=== PATIENT | male | born 1960 | race Caucasian/White ===

== ENCOUNTER 2016-07-21 10:18 | Emergency (ER) | payer MEDICARE, MEDICAID ==
--- NOTE | 2016-07-21 11:05 | EDDOCDS ---
Physician Documentation [facility] Name: Angel Suazo Age: 56 yrs Sex: Male : 1960 Arrival Date: 07/21/2016 Time: 10:18 Bed Triage 1 Private MD: Deng Lentz Disposition: 07/21/16 10:48 Discharged to Home/Self Care. Impression: Fall on same level due to ice and snow, Strain of muscle, fascia and tendon of lower back. - Condition is Stable. - Discharge Instructions: Back Pain, Adult, Muscle Strain. - Prescriptions for Naprosyn 500 mg Oral Tablet - take 1 tablet by ORAL route 2 times per day take with food; 30 tablet. Cyclobenzaprine 10 mg Oral Tablet - take 1 tablet by ORAL route 3 times per day As needed; 15 tablet. - Medication Reconciliation, Local Pharmacy Hours form. - Follow up: Deng Lentz; When: Call to arrange an appointment; Reason: Recheck today's complaints, Continuance of care. Follow up: Emergency Department; When: As needed; Reason: Worsening of conditions, severe pain, numbness/weakness of legs, bowel/bladder dysfunction. - Problem is new. - Symptoms are unchanged. Historical: - Allergies: [place] Soap; - Home Meds: 1. metformin 1,000 mg oral tab daily - PMHx: Anxiety; Depression; Left knee pain - no ACL; - PSHx: Calcium Deposit removed from Scrotum; Bone Grafting; - Social history: Smoking status: Patient uses tobacco products, heavy tobacco smoker. No barriers to communication noted, The patient speaks fluent Faroese, Speaks appropriately for age. - Family history: Not pertinent. - : The pt / caregiver states he / she is not on anticoagulants. Home medication list is obtained from the patient. - Exposure Risk Screening:: None identified. Vital Signs: 07/21 10:23 BP 147 / 95; Pulse 81; Resp 18; Temp 97.0; Pulse Ox 97% ; Weight 112.94 kg / 248.99 elp lbs; Height 5 ft. 9 in. (175.26 cm); Pain 8/10; 10:23 Body Mass Index 36.77 (112.94 kg, 175.26 cm) elp MDM: 11:01 Financial registration complete. lg Signatures: Mendez Shaikh RN RN dwg Johnson, Bruce, RN RN bcj Ganter, LoriLee, Masoud Reg lg Pierce Vigil, BISHNU GOETZ ar2 MTDD
--- NOTE | 2016-07-21 11:05 | EDDOCDS ---
Nurse's Notes [facility] Name: Angel Suazo Age: 56 yrs Sex: Male : 1960 Arrival Date: 07/21/2016 Time: 10:18 Bed Triage 1 Private MD: Deng Lentz Diagnosis: Fall on same level due to ice and snow;Strain of muscle, fascia and tendon of lower back Presentation: 07/21 10:28 Presenting complaint: Patient states: fell a few days ago and landed on stomach. has bcj had back pain since fall. has hx of low back problems. c/o low back pain and pain in hips today. pain increased with sitting / walking. denies diff voiding. Acute neurological deficits are not present. Mechanism of Injury: Fall. Adult Sepsis Screening: The patient does not have new or worsening altered mentation. Patient's respiratory rate is less than 22. Systolic blood pressure is greater than 100. Patient has a qSOFA score of 0- Negative Sepsis Screen. 10:28 Acuity: PREM Level 4 bcj 11:04 Suicide/Homicide risk assessment- the patient denies having any suicidal and/or dwg homicidal ideations and does not present with any other emotional, behavioral or mental health complaints. Status: Patient is not a patient services representative or dependent. Transition of care: patient was not received from another setting of care. 11:04 Method Of Arrival: Walkin/Carried/Asstd dwg Triage Assessment: 10:31 General: Appears in no apparent distress, comfortable, Behavior is cooperative. Pain: bcj Location: back Pain currently is 8 out of 10 on a pain scale. HIV screening NA for this visit Offered previously. Musculoskeletal: No deficits noted. Historical: - Allergies: [place] Soap; - Home Meds: 1. metformin 1,000 mg oral tab daily - PMHx: Anxiety; Depression; Left knee pain - no ACL; - PSHx: Calcium Deposit removed from Scrotum; Bone Grafting; - Social history: Smoking status: Patient uses tobacco products, heavy tobacco smoker. No barriers to communication noted, The patient speaks fluent Amharic, Speaks appropriately for age. - Family history: Not pertinent. - : The pt / caregiver states he / she is not on anticoagulants. Home medication list is obtained from the patient. - Exposure Risk Screening:: None identified. Screenin:03 Screening information is obtained from the patient. Fall risk: No risks identified. dwg Assistance ADL's: requires no assistance with activities of daily living. Abuse/DV Screen: The patient / caregiver reports he/she is: not in a situation that causes fear, pain or injury. Nutritional screening: No deficits noted. Advance Directives: Currently, there is no health care proxy. There is no active DNR order. There is no living will. There is no Power of Healthcare Analyst. Advance directive information has not previously been placed in an [facility] medical record. Further advance directive information is declined. home support is adequate. Assessment: 11:02 General: Appears in no apparent distress, Behavior is cooperative. Pain: Location: left dwg low back and right low back Pain currently is 8 out of 10 on a pain scale. Neurological: Level of Consciousness is awake, alert, Oriented to person, place, time. Respiratory: Airway is patent Respiratory effort is even, unlabored, Respiratory pattern is regular, symmetrical. Musculoskeletal: Low back pain since falling. Vital Signs: 10:23 BP 147 / 95; Pulse 81; Resp 18; Temp 97.0; Pulse Ox 97% ; Weight 112.94 kg; Height 5 elp ft. 9 in. (175.26 cm); Pain 8/10; 10:23 Body Mass Index 36.77 (112.94 kg, 175.26 cm) [facility] Vitals: 10:23 Log In Time: July 21, 2016 at 10:20. [facility] ED Course: 10:23 Patient visited by Nabila Berrios PCA. elp 10:23 Dneg Lentz is Private Physician. elp 10:23 Patient moved to Waiting elp 10:23 Patient moved to Pre RCE elp 10:24 Patient visited by Nabila Berrios PCA. elp 10:30 Triage Initiated bcj 10:31 Patient visited by Sandor Vallejo RN. bcj 10:38 Pierce Vigil [facility]C [facility]. ar2 10:38 Erich Powell MD is Attending Physician. ar2 10:38 Patient moved to Triage 1 ct3 10:39 Patient visited by Pierce Vigil PA-C. ar2 10:47 Deng Lentz is Referral Physician. ar2 11:04 The patient / caregiver is instructed regarding the plan of care and ED course. dwg 11:04 No IV's were initiated during this patient's visit. No procedures done that require dwg assistance. Order Results: There are currently no results for this order. Outcome: 10:48 Discharge ordered by Provider. ar2 11:03 Discharge Assessment: Patient awake, alert and oriented x 3. No cognitive and/or dwg functional deficits noted. Patient verbalized understanding of disposition instructions. patient administered narcotics - no. The following High Risk Discharge criteria are identified: None. Discharged to home ambulatory. Condition: good Condition: stable. No special radiology studies were completed. Property sent home with patient. 11:04 Patient left the ED. dwg Signatures: Mendez Shaikh, RN RN Sandor Canales RN RN Pierce Spicer, BISHNU PA-Adonis ar2 Monserrat Garrett, INSTRUMENTATION SPECIALIST INSTRUMENTATION SPECIALIST ct3 Nabila Berrios, INSTRUMENTATION SPECIALIST INSTRUMENTATION SPECIALIST elp MTDD
--- NOTE | 2016-07-23 12:05 | EDDOCDS ---
Physician Documentation [facility] Name: Angel Suazo Age: 56 yrs Sex: Male : 1960 Arrival Date: 07/21/2016 Time: 10:18 Bed Triage 1 Private MD: Deng Lentz Disposition: 07/21/16 10:48 Discharged to Home/Self Care. Impression: Fall on same level due to ice and snow, Strain of muscle, fascia and tendon of lower back. - Condition is Stable. - Discharge Instructions: Back Pain, Adult, Muscle Strain. - Prescriptions for Naprosyn 500 mg Oral Tablet - take 1 tablet by ORAL route 2 times per day take with food; 30 tablet. Cyclobenzaprine 10 mg Oral Tablet - take 1 tablet by ORAL route 3 times per day As needed; 15 tablet. - Medication Reconciliation, Local Pharmacy Hours form. - Follow up: Deng Lentz; When: Call to arrange an appointment; Reason: Recheck today's complaints, Continuance of care. Follow up: Emergency Department; When: As needed; Reason: Worsening of conditions, severe pain, numbness/weakness of legs, bowel/bladder dysfunction. - Problem is new. - Symptoms are unchanged. Historical: - Allergies: [place] Soap; - Home Meds: 1. metformin 1,000 mg oral tab daily - PMHx: Anxiety; Depression; Left knee pain - no ACL; - PSHx: Calcium Deposit removed from Scrotum; Bone Grafting; - Social history: Smoking status: Patient uses tobacco products, heavy tobacco smoker. No barriers to communication noted, The patient speaks fluent Setswana, Speaks appropriately for age. - Family history: Not pertinent. - : The pt / caregiver states he / she is not on anticoagulants. Home medication list is obtained from the patient. - Exposure Risk Screening:: None identified. Vital Signs: 07/21 10:23 BP 147 / 95; Pulse 81; Resp 18; Temp 97.0; Pulse Ox 97% ; Weight 112.94 kg / 248.99 elp lbs; Height 5 ft. 9 in. (175.26 cm); Pain 8/10; 10:23 Body Mass Index 36.77 (112.94 kg, 175.26 cm) elp MDM: 11:01 Financial registration complete. lg 11:46 [facility] Payment Agreement was scanned into [employer] and attached to record. lg 14:17 T-Sheet-- Draft Copy was scanned into [employer] and attached to record. gb Signatures: Mendez Shaikh RN RN dwg Johnson, Bruce, RN RN Yoselin Mckeon, Reg Reg gb Alen Wilson, Reg Reg lg Pierce Vigil, BISHNU [email or web address] The chart was reviewed and I authenticate all verbal orders and agree with the evaluation and treatment provided.Attachments: 11:46 [facility] Payment Agreement lg 14:17 T-Sheet-- Draft Copy gb Chart Complete MTDD
--- NOTE | 2016-07-23 12:05 | EDDOCDS ---
Nurse's Notes [facility] Name: Angel Suazo Age: 56 yrs Sex: Male : 1960 Arrival Date: 07/21/2016 Time: 10:18 Bed Triage 1 Private MD: Deng Lentz Diagnosis: Fall on same level due to ice and snow;Strain of muscle, fascia and tendon of lower back Presentation: 07/21 10:28 Presenting complaint: Patient states: fell a few days ago and landed on stomach. has bcj had back pain since fall. has hx of low back problems. c/o low back pain and pain in hips today. pain increased with sitting / walking. denies diff voiding. Acute neurological deficits are not present. Mechanism of Injury: Fall. Adult Sepsis Screening: The patient does not have new or worsening altered mentation. Patient's respiratory rate is less than 22. Systolic blood pressure is greater than 100. Patient has a qSOFA score of 0- Negative Sepsis Screen. 10:28 Acuity: PREM Level 4 bcj 11:04 Suicide/Homicide risk assessment- the patient denies having any suicidal and/or dwg homicidal ideations and does not present with any other emotional, behavioral or mental health complaints. Status: Patient is not a resident service coordinator or dependent. Transition of care: patient was not received from another setting of care. 11:04 Method Of Arrival: Walkin/Carried/Asstd dwg Triage Assessment: 10:31 General: Appears in no apparent distress, comfortable, Behavior is cooperative. Pain: bcj Location: back Pain currently is 8 out of 10 on a pain scale. HIV screening NA for this visit Offered previously. Musculoskeletal: No deficits noted. Historical: - Allergies: [place] Spring Soap; - Home Meds: 1. metformin 1,000 mg oral tab daily - PMHx: Anxiety; Depression; Left knee pain - no ACL; - PSHx: Calcium Deposit removed from Scrotum; Bone Grafting; - Social history: Smoking status: Patient uses tobacco products, heavy tobacco smoker. No barriers to communication noted, The patient speaks fluent Latvian, Speaks appropriately for age. - Family history: Not pertinent. - : The pt / caregiver states he / she is not on anticoagulants. Home medication list is obtained from the patient. - Exposure Risk Screening:: None identified. Screenin:03 Screening information is obtained from the patient. Fall risk: No risks identified. dwg Assistance ADL's: requires no assistance with activities of daily living. Abuse/DV Screen: The patient / caregiver reports he/she is: not in a situation that causes fear, pain or injury. Nutritional screening: No deficits noted. Advance Directives: Currently, there is no health care proxy. There is no active DNR order. There is no living will. There is no Power of Imaging Analyst. Advance directive information has not previously been placed in an [facility] medical record. Further advance directive information is declined. home support is adequate. Assessment: 11:02 General: Appears in no apparent distress, Behavior is cooperative. Pain: Location: left dwg low back and right low back Pain currently is 8 out of 10 on a pain scale. Neurological: Level of Consciousness is awake, alert, Oriented to person, place, time. Respiratory: Airway is patent Respiratory effort is even, unlabored, Respiratory pattern is regular, symmetrical. Musculoskeletal: Low back pain since falling. Vital Signs: 10:23 BP 147 / 95; Pulse 81; Resp 18; Temp 97.0; Pulse Ox 97% ; Weight 112.94 kg; Height 5 elp ft. 9 in. (175.26 cm); Pain 8/10; 10:23 Body Mass Index 36.77 (112.94 kg, 175.26 cm) [facility] Vitals: 10:23 Log In Time: July 21, 2016 at 10:20. [facility] ED Course: 10:23 Patient visited by Nabila Berrios PCA. elp 10:23 Deng Lentz is Private Physician. elp 10:23 Patient moved to Waiting elp 10:23 Patient moved to Pre RCE elp 10:24 Patient visited by Nabila Berrios PCA. elp 10:30 Triage Initiated bcj 10:31 Patient visited by Sandor Vallejo RN. bcj 10:38 Pierce Vigil PA-C [facility]. ar2 10:38 Erich Powell MD is Attending Physician. ar2 10:38 Patient moved to Triage 1 ct3 10:39 Patient visited by Pierce Vigil PA-C. ar2 10:47 Deng Lentz is Referral Physician. ar2 11:04 The patient / caregiver is instructed regarding the plan of care and ED course. dwg 11:04 No IV's were initiated during this patient's visit. No procedures done that require dwg assistance. 11:46 [facility] Payment Agreement was scanned into [employer] and attached to record. lg 14:17 T-Sheet-- Draft Copy was scanned into [employer] and attached to record. gb Order Results: There are currently no results for this order. Outcome: 10:48 Discharge ordered by Provider. ar2 11:03 Discharge Assessment: Patient awake, alert and oriented x 3. No cognitive and/or dwg functional deficits noted. Patient verbalized understanding of disposition instructions. patient administered narcotics - no. The following High Risk Discharge criteria are identified: None. Discharged to home ambulatory. Condition: good Condition: stable. No special radiology studies were completed. Property sent home with patient. 11:04 Patient left the ED. dwg Signatures: Mendez Shaikh, RN RN Sandor Canales, RN RN Yoselin Mckeon, Reg Reg gb Alen Wilson, Reg Reg lg Pierce Vigil, BISHNU PACarrie ar2 Tami, Monserrat, BACKROOM ASSOCIATE BACKROOM ASSOCIATE ct3 Nabila Berrios, BACKROOM ASSOCIATE BACKROOM ASSOCIATE elp Chart Complete MTDD
--- NOTE | 2016-07-23 12:05 | EDDOCDS ---
Physician Documentation [facility] Name: Angel Suazo Age: 56 yrs Sex: Male : 1960 Arrival Date: 07/21/2016 Time: 10:18 Bed Triage 1 Private MD: Deng Lentz Disposition: 07/21/16 10:48 Discharged to Home/Self Care. Impression: Fall on same level due to ice and snow, Strain of muscle, fascia and tendon of lower back. - Condition is Stable. - Discharge Instructions: Back Pain, Adult, Muscle Strain. - Prescriptions for Naprosyn 500 mg Oral Tablet - take 1 tablet by ORAL route 2 times per day take with food; 30 tablet. Cyclobenzaprine 10 mg Oral Tablet - take 1 tablet by ORAL route 3 times per day As needed; 15 tablet. - Medication Reconciliation, Local Pharmacy Hours form. - Follow up: Deng Lentz; When: Call to arrange an appointment; Reason: Recheck today's complaints, Continuance of care. Follow up: Emergency Department; When: As needed; Reason: Worsening of conditions, severe pain, numbness/weakness of legs, bowel/bladder dysfunction. - Problem is new. - Symptoms are unchanged. Historical: - Allergies: [place] Soap; - Home Meds: 1. metformin 1,000 mg oral tab daily - PMHx: Anxiety; Depression; Left knee pain - no ACL; - PSHx: Calcium Deposit removed from Scrotum; Bone Grafting; - Social history: Smoking status: Patient uses tobacco products, heavy tobacco smoker. No barriers to communication noted, The patient speaks fluent Slovenian, Speaks appropriately for age. - Family history: Not pertinent. - : The pt / caregiver states he / she is not on anticoagulants. Home medication list is obtained from the patient. - Exposure Risk Screening:: None identified. Vital Signs: 07/21 10:23 BP 147 / 95; Pulse 81; Resp 18; Temp 97.0; Pulse Ox 97% ; Weight 112.94 kg / 248.99 elp lbs; Height 5 ft. 9 in. (175.26 cm); Pain 8/10; 10:23 Body Mass Index 36.77 (112.94 kg, 175.26 cm) elp MDM: 11:01 Financial registration complete. lg 11:46 [facility] Payment Agreement was scanned into [employer] and attached to record. lg 14:17 T-Sheet-- Draft Copy was scanned into [employer] and attached to record. gb Signatures: Mendez Shaikh RN RN dwg Johnson, Bruce, RN RN Yoselin Mckeon, Reg Reg gb Alen Wilson, Reg Reg lg Pierce Vigil, BISHNU [email or web address] The chart was reviewed and I authenticate all verbal orders and agree with the evaluation and treatment provided.Attachments: 11:46 [facility] Payment Agreement lg 14:17 T-Sheet-- Draft Copy gb Chart Complete MTDD
== END 2016-07-21 11:04 | disposition home or self-care (01) ==
LOC: M ED 10:18
DX: M54.16 Radiculopathy, lumbar region (principal); S39.012A Strain of muscle, fascia and tendon of lower back, initial encounter; W00.0XXA Fall on same level due to ice and snow, initial encounter; Y92.89 Other specified places as the place of occurrence of the external cause; Y93.89 Activity, other specified; Y99.8 Other external cause status; M51.9 Unspecified thoracic, thoracolumbar and lumbosacral intervertebral disc disorder; F17.200 Nicotine dependence, unspecified, uncomplicated; Z79.84 Long term (current) use of oral hypoglycemic drugs; Z91.09 Other allergy status, other than to drugs and biological substances

== ENCOUNTER 2016-09-07 08:10 | Emergency (ER) | payer MEDICARE, MEDICAID ==
[~2016-09-07] VITALS: Ht 175.3 cm; Wt 112.5 kg
[2016-09-07] MEDS ORDERED: METF1000 (08:26)
[2016-09-07] MEDS ORDERED: MELO15TA4 (08:26)
[2016-09-07] MEDS ORDERED: ATOR1TAB18 (08:26)
[2016-09-07 09:32] VITALS: BP 141/90
== END 2016-09-07 09:42 | disposition home or self-care (01) ==
LOC: M ED 08:56
DX: R59.0 Localized enlarged lymph nodes (principal); E11.9 Type 2 diabetes mellitus without complications; I10 Essential (primary) hypertension; F20.9 Schizophrenia, unspecified; Z91.040 Latex allergy status; Z79.84 Long term (current) use of oral hypoglycemic drugs; Z79.899 Other long term (current) drug therapy; F17.210 Nicotine dependence, cigarettes, uncomplicated

== ENCOUNTER 2017-03-19 11:02 | Emergency (ER) | payer MEDICARE, MEDICAID ==
[~2017-03-19] VITALS: Ht 175.3 cm; Wt 88.2 kg
[~2017-03-19 11:02] MED LIST: ATOR80TA59; MELO15TA4; METF10004
[2017-03-19 11:03] VITALS: BP 136/80
[2017-03-19] MEDS ORDERED: ACET-683 PO (12:14)
[2017-03-19] MEDS ORDERED: AMOX500C PO (12:14)
== END 2017-03-19 12:39 | disposition home or self-care (01) ==
LOC: M ED 11:02
DX: K02.9 Dental caries, unspecified (principal); E11.9 Type 2 diabetes mellitus without complications; I10 Essential (primary) hypertension; K05.6 Periodontal disease, unspecified; F17.210 Nicotine dependence, cigarettes, uncomplicated; Z79.84 Long term (current) use of oral hypoglycemic drugs; Z79.899 Other long term (current) drug therapy; Z91.040 Latex allergy status

== ENCOUNTER 2018-02-15 21:37 | Inpatient (IN) | payer MEDICARE, MEDICAID ==
[2018-02-15] MEDS: ONDANSETRON 4MG/2ML VIAL (J2405) IV (22:12)
[2018-02-15] MEDS: NS 1,000 ML IV (22:12)
[2018-02-15] MEDS: LORazepam 2 MG/ML VIAL (J2060) IV (22:15)
[2018-02-15 22:23] LABS: BASO % 0.3 % (0.0-1.0); EOS % 0.1 % (0.0-3.0); HEMOGLOBIN 17.6 g/dl (13.5-17.5); IMMATURE GRANULOCYTE % 0.4 % (0-3.0); LYMPH # 1.7 10^3/uL (1.5-4.5); LYMPH % 17.4 % (24.0-44.0); MEAN CORPUSCULAR HEMOGLOBIN 31.7 pg (27.0-33.0); MEAN CORPUSCULAR HGB CONC 35.9 g/dl (32.0-36.5); MEAN CORPUSCULAR VOLUME 88.1 fl (80.0-96.0); MONO # 0.8 10^3/uL (0.0-0.8); NEUTROPHILS # 7.1 10^3/uL (1.8-7.7); NEUTROPHILS % 73.8 % (36.0-66.0); PLATELET COUNT, AUTOMATED 240 10^3/uL (150-450); RED BLOOD COUNT 5.56 10^6/uL (4.30-6.10); RED CELL DISTRIBUTION WIDTH 11.4 % (11.5-14.5); WHITE BLOOD COUNT 9.6 10^3/uL (4.0-10.0)
[2018-02-15 22:31] LABS: INR 1.23; PROTHROMBIN TIME 15.7 SECONDS (12.1-14.4)
[2018-02-15 22:32] LABS: PARTIAL THROMBOPLASTIN TIME 28.5 SECONDS (25.4-37.6)
[2018-02-15 22:39] LABS: ALBUMIN 3.3 GM/DL (3.2-5.2); ALBUMIN/GLOBULIN RATIO 0.77 (1.00-1.93); ALKALINE PHOSPHATASE 65 U/L (45-117); ALT/SGPT 82 U/L (12-78); ANION GAP 11 MEQ/L (8-16); AST/SGOT 39 U/L (7-37); BILIRUBIN,DIRECT 0.7 MG/DL (0.0-0.2); BILIRUBIN,TOTAL 1.6 MG/DL (0.2-1.0); BLOOD UREA NITROGEN 29 MG/DL (7-18); CALCIUM LEVEL 9.3 MG/DL (8.5-10.1); CARBON DIOXIDE LEVEL 26 MEQ/L (21-32); CHLORIDE LEVEL 97 MEQ/L (98-107); CK-MB VALUE MASS < 1.0 NG/ML (<3.6); CPK CREATINE PHOSPHOKINASE 42 U/L (39-308); CREATININE FOR GFR 1.19 MG/DL (0.70-1.30); GLOMERULAR FILTRATION RATE > 60.0 (>56); GLUCOSE, FASTING 140 MG/DL (70-100); LIPASE 103 U/L (73-393); MB/CK RELATIVE INDEX 2.38 (< OR =4); POTASSIUM SERUM 3.9 MEQ/L (3.5-5.1); SODIUM LEVEL 134 MEQ/L (136-145); TOTAL PROTEIN 7.6 GM/DL (6.4-8.2); TROPONIN I < 0.02 NG/ML (< 0.10)
[2018-02-15 22:40] LABS: LACTIC ACID SEPSIS PROTOCOL 2.9 MMOL/L (0.4-2.0)
[2018-02-15 22:46] LABS: MAGNESIUM LEVEL 2.6 MG/DL (1.8-2.4)
[2018-02-15 22:46] LABS: THYROID STIMULATING HORMONE 0.319 uIU/ML (0.358-3.740)
[2018-02-15] MEDS: MECLIZINE 25 MG TABLET PO (23:28)
[2018-02-15 23:34] LABS: FREE T4 1.41 NG/DL (0.76-1.46)
[2018-02-16] MEDS: MECLIZINE 25 MG TABLET PO (00:43)
[2018-02-16] MEDS: NS 1,000 ML IV ×2 (02:16→16:00)
[2018-02-16] MEDS ORDERED: GASTROGRAFIN SOLUTION 30ML (Q9963) As Ordered (02:48)
[2018-02-16] MEDS: GASTROGRAFIN SOLUTION 30ML PO ×2 (02:50→03:30)
[2018-02-16] MEDS: PANTOPRAZOLE 40MG INJ (PROTONIX) (C9113) IV (03:00)
[2018-02-16] MEDS: ONDANSETRON 4MG/2ML VIAL (J2405) IV (03:17)
[2018-02-16] MEDS ORDERED: ISOVUE-370 76% 100ML VIAL (Q9967) As Ordered (04:17)
[2018-02-16] MEDS: HEPARIN SOD (PORCINE) 5000 UNITS/ML VIAL SC ×3 (06:00→21:29)
[2018-02-16 07:54] LABS: HEMATOCRIT 45.7 % (42.0-52.0); HEMOGLOBIN 16.3 g/dl (13.5-17.5); MEAN CORPUSCULAR HEMOGLOBIN 31.5 pg (27.0-33.0); MEAN CORPUSCULAR HGB CONC 35.7 g/dl (32.0-36.5); MEAN CORPUSCULAR VOLUME 88.2 fl (80.0-96.0); PLATELET COUNT, AUTOMATED 195 10^3/uL (150-450); RED BLOOD COUNT 5.18 10^6/uL (4.30-6.10); RED CELL DISTRIBUTION WIDTH 11.6 % (11.5-14.5)
[2018-02-16 08:21] LABS: ALBUMIN 2.7 GM/DL (3.2-5.2); ALBUMIN/GLOBULIN RATIO 0.73 (1.00-1.93); ALKALINE PHOSPHATASE 54 U/L (45-117); ALT/SGPT 69 U/L (12-78); ANION GAP 11 MEQ/L (8-16); AST/SGOT 32 U/L (7-37); BILIRUBIN,DIRECT 0.4 MG/DL (0.0-0.2); BILIRUBIN,TOTAL 0.9 MG/DL (0.2-1.0); BLOOD UREA NITROGEN 23 MG/DL (7-18); CALCIUM LEVEL 8.5 MG/DL (8.5-10.1); CARBON DIOXIDE LEVEL 23 MEQ/L (21-32); CHLORIDE LEVEL 100 MEQ/L (98-107); CREATININE FOR GFR 1.07 MG/DL (0.70-1.30); GLOMERULAR FILTRATION RATE > 60.0 (>56); GLUCOSE, FASTING 171 MG/DL (70-100); MAGNESIUM LEVEL 2.5 MG/DL (1.8-2.4); POTASSIUM SERUM 3.6 MEQ/L (3.5-5.1); SODIUM LEVEL 134 MEQ/L (136-145); TOTAL PROTEIN 6.4 GM/DL (6.4-8.2)
[2018-02-16 11:25] LABS: ESTIMATED AVERAGE GLUCOSE 166 MG/DL (60-110); HEMOGLOBIN A1c 7.4 %
[2018-02-16 20:15] LABS: BEDSIDE GLUCOSE 193 MG/DL (70-105)
[2018-02-16] MEDS: ASPIRIN 81 MG ENTERIC TAB PO (20:47)
[2018-02-16] MEDS: SIMVASTATIN 40 MG TAB PO (21:29)
[2018-02-17] MEDS: PANTOPRAZOLE 40MG INJ (PROTONIX) (C9113) IV (02:14)
[2018-02-17] MEDS: NS 1,000 ML IV ×3 (03:29→22:08)
[2018-02-17] MEDS: HEPARIN SOD (PORCINE) 5000 UNITS/ML VIAL SC ×3 (06:27→22:01)
[2018-02-17 06:56] LABS: CHOLESTEROL LEVEL 176 MG/DL (<200); CHOLESTEROL RISK RATIO 4.756 (<5); HDL CHOLESTEROL 37 MG/DL (>40); LDL CHOLESTEROL 94.6 MG/DL (<100); NON-HDL-C 139 MG/DL; TRIGLYCERIDES LEVEL 222 MG/DL (<150)
[2018-02-17 08:21] LABS: HEMATOCRIT 48.6 % (42.0-52.0); HEMOGLOBIN 17.1 g/dl (13.5-17.5); MEAN CORPUSCULAR HEMOGLOBIN 31.7 pg (27.0-33.0); MEAN CORPUSCULAR HGB CONC 35.2 g/dl (32.0-36.5); MEAN CORPUSCULAR VOLUME 90.2 fl (80.0-96.0); PLATELET COUNT, AUTOMATED 203 10^3/uL (150-450); RED BLOOD COUNT 5.39 10^6/uL (4.30-6.10); RED CELL DISTRIBUTION WIDTH 11.6 % (11.5-14.5)
[2018-02-17 08:31] LABS: ANION GAP 13 MEQ/L (8-16); BLOOD UREA NITROGEN 13 MG/DL (7-18); CALCIUM LEVEL 8.2 MG/DL (8.5-10.1); CARBON DIOXIDE LEVEL 24 MEQ/L (21-32); CHLORIDE LEVEL 101 MEQ/L (98-107); CREATININE FOR GFR 0.81 MG/DL (0.70-1.30); GLOMERULAR FILTRATION RATE > 60.0 (>56); GLUCOSE, FASTING 129 MG/DL (70-100); MAGNESIUM LEVEL 2.3 MG/DL (1.8-2.4); POTASSIUM SERUM 3.5 MEQ/L (3.5-5.1); SODIUM LEVEL 138 MEQ/L (136-145)
[2018-02-17] MEDS: ONDANSETRON 4MG/2ML VIAL (J2405) IV (09:22)
[2018-02-17] MEDS: ASPIRIN 81 MG ENTERIC TAB PO (09:22)
[2018-02-17] MEDS ORDERED: DEXTROSE 50% 50 ML SYRINGE IV (13:00)
[2018-02-17] MEDS ORDERED: GLUCAGON FOR INJ 1 MG VIAL (J1610) SC (13:00)
[2018-02-17] MEDS ORDERED: GLUCOSE 4 GM CHEW TABLET PO (13:00)
[2018-02-17 17:10] LABS: BEDSIDE GLUCOSE 159 MG/DL (70-105)
[2018-02-17] MEDS: HumaLOG INSULIN (NovoLOG) PER UNIT SC ×2 (17:40→22:01)
[2018-02-17 20:31] LABS: BEDSIDE GLUCOSE 119 MG/DL (70-105)
[2018-02-17] MEDS: SIMVASTATIN 40 MG TAB PO (22:01)
[2018-02-17] MEDS: QUEtiapine FUMARATE 50 MG TAB PO (22:01)
[2018-02-18] MEDS: PANTOPRAZOLE 40MG INJ (PROTONIX) (C9113) IV (03:51)
[2018-02-18] MEDS: HEPARIN SOD (PORCINE) 5000 UNITS/ML VIAL SC ×3 (05:25→21:09)
[2018-02-18 06:12] LABS: ANION GAP 8 MEQ/L (8-16); BLOOD UREA NITROGEN 7 MG/DL (7-18); CALCIUM LEVEL 8.1 MG/DL (8.5-10.1); CARBON DIOXIDE LEVEL 29 MEQ/L (21-32); CHLORIDE LEVEL 103 MEQ/L (98-107); CREATININE FOR GFR 0.85 MG/DL (0.70-1.30); GLOMERULAR FILTRATION RATE > 60.0 (>56); GLUCOSE, FASTING 115 MG/DL (70-100); POTASSIUM SERUM 3.1 MEQ/L (3.5-5.1); SODIUM LEVEL 140 MEQ/L (136-145)
[2018-02-18 06:21] LABS: HEMATOCRIT 46.2 % (42.0-52.0); HEMOGLOBIN 15.7 g/dl (13.5-17.5); MEAN CORPUSCULAR VOLUME 91.3 fl (80.0-96.0); PLATELET COUNT, AUTOMATED 173 10^3/uL (150-450); RED BLOOD COUNT 5.06 10^6/uL (4.30-6.10); RED CELL DISTRIBUTION WIDTH 11.8 % (11.5-14.5); WHITE BLOOD COUNT 6.4 10^3/uL (4.0-10.0)
[2018-02-18 06:35] LABS: AMPHETAMINES URINE REFLEX NEGATIVE (NEGATIVE); BARBITURATES URINE REFLEX NEGATIVE (NEGATIVE); BENZODIAZEPINES URINE REFLEX NEGATIVE (NEGATIVE); CANNABINOIDS URINE REFLEX NEGATIVE (NEGATIVE); COCAINE METABOLITE URINE REFLE NEGATIVE (NEGATIVE); METHADONE URINE REFLEX NEGATIVE (NEGATIVE); OPIATES URINE REFLEX NEGATIVE (NEGATIVE); PHENCYCLIDINE URINE REFLEX NEGATIVE (NEGATIVE)
[2018-02-18] MEDS: ASPIRIN 81 MG ENTERIC TAB PO (07:51)
[2018-02-18] MEDS: HumaLOG INSULIN (NovoLOG) PER UNIT SC ×5 (07:51→20:13)
[2018-02-18] MEDS: NS 1,000 ML IV ×2 (07:51→15:22)
[2018-02-18 11:21] LABS: BEDSIDE GLUCOSE 167 MG/DL (70-105)
[2018-02-18] MEDS: ONDANSETRON 4MG/2ML VIAL (J2405) IV (13:59)
[2018-02-18 16:21] LABS: BEDSIDE GLUCOSE 137 MG/DL (70-105)
[2018-02-18 20:07] LABS: BEDSIDE GLUCOSE 153 MG/DL (70-105)
[2018-02-18] MEDS: QUEtiapine FUMARATE 50 MG TAB PO (20:15)
[2018-02-18] MEDS: SIMVASTATIN 40 MG TAB PO (20:15)
[2018-02-19] MEDS: NS 1,000 ML IV ×3 (00:20→20:24)
[2018-02-19] MEDS: PANTOPRAZOLE 40MG INJ (PROTONIX) (C9113) IV (02:43)
[2018-02-19] MEDS: HEPARIN SOD (PORCINE) 5000 UNITS/ML VIAL SC ×3 (05:15→21:33)
[2018-02-19 06:17] LABS: HEMATOCRIT 42.4 % (42.0-52.0); HEMOGLOBIN 14.9 g/dl (13.5-17.5); MEAN CORPUSCULAR HEMOGLOBIN 31.6 pg (27.0-33.0); MEAN CORPUSCULAR HGB CONC 35.1 g/dl (32.0-36.5); MEAN CORPUSCULAR VOLUME 89.8 fl (80.0-96.0); PLATELET COUNT, AUTOMATED 168 10^3/uL (150-450); RED BLOOD COUNT 4.72 10^6/uL (4.30-6.10); RED CELL DISTRIBUTION WIDTH 11.7 % (11.5-14.5); WHITE BLOOD COUNT 6.7 10^3/uL (4.0-10.0)
[2018-02-19 06:35] LABS: ANION GAP 8 MEQ/L (8-16); BLOOD UREA NITROGEN 6 MG/DL (7-18); CALCIUM LEVEL 8.1 MG/DL (8.5-10.1); CARBON DIOXIDE LEVEL 29 MEQ/L (21-32); CHLORIDE LEVEL 102 MEQ/L (98-107); CREATININE FOR GFR 0.97 MG/DL (0.70-1.30); GLOMERULAR FILTRATION RATE > 60.0 (>56); GLUCOSE, FASTING 128 MG/DL (70-100); POTASSIUM SERUM 3.4 MEQ/L (3.5-5.1); SODIUM LEVEL 139 MEQ/L (136-145)
[2018-02-19] MEDS: ASPIRIN 81 MG ENTERIC TAB PO (08:19)
[2018-02-19] MEDS: HumaLOG INSULIN (NovoLOG) PER UNIT SC ×4 (08:20→20:17)
[2018-02-19] MEDS ORDERED: GI COCKTAIL 50ML BTL(HYOSCYAMINE/MAALOX/LIDOCAINE VISCOUS)(1:3:1) PO (10:45)
[2018-02-19 11:45] LABS: BEDSIDE GLUCOSE 174 MG/DL (70-105)
[2018-02-19] MEDS: SUCRALFATE SUSP 1GM/10ML UD PO ×3 (13:01→20:23)
[2018-02-19 16:26] LABS: BEDSIDE GLUCOSE 124 MG/DL (70-105)
[2018-02-19 20:09] LABS: BEDSIDE GLUCOSE 151 MG/DL (70-105)
[2018-02-19] MEDS: QUEtiapine FUMARATE 50 MG TAB PO (20:23)
[2018-02-19] MEDS: SIMVASTATIN 40 MG TAB PO (20:24)
[2018-02-20] MEDS: PANTOPRAZOLE 40MG INJ (PROTONIX) (C9113) IV (02:22)
[2018-02-20] MEDS: HEPARIN SOD (PORCINE) 5000 UNITS/ML VIAL SC ×3 (05:20→21:08)
[2018-02-20] MEDS: NS 1,000 ML IV ×2 (05:20→15:44)
[2018-02-20 06:13] LABS: HEMATOCRIT 39.8 % (42.0-52.0); HEMOGLOBIN 13.8 g/dl (13.5-17.5); MEAN CORPUSCULAR HEMOGLOBIN 31.4 pg (27.0-33.0); MEAN CORPUSCULAR HGB CONC 34.7 g/dl (32.0-36.5); MEAN CORPUSCULAR VOLUME 90.5 fl (80.0-96.0); PLATELET COUNT, AUTOMATED 154 10^3/uL (150-450); RED CELL DISTRIBUTION WIDTH 11.8 % (11.5-14.5); WHITE BLOOD COUNT 6.4 10^3/uL (4.0-10.0)
[2018-02-20 06:31] LABS: ANION GAP 9 MEQ/L (8-16); BLOOD UREA NITROGEN 8 MG/DL (7-18); CALCIUM LEVEL 8.1 MG/DL (8.5-10.1); CARBON DIOXIDE LEVEL 27 MEQ/L (21-32); CHLORIDE LEVEL 105 MEQ/L (98-107); CREATININE FOR GFR 0.89 MG/DL (0.70-1.30); GLOMERULAR FILTRATION RATE > 60.0 (>56); GLUCOSE, FASTING 119 MG/DL (70-100); MAGNESIUM LEVEL 1.7 MG/DL (1.8-2.4); POTASSIUM SERUM 3.2 MEQ/L (3.5-5.1); SODIUM LEVEL 141 MEQ/L (136-145)
[2018-02-20] MEDS: HumaLOG INSULIN (NovoLOG) PER UNIT SC ×4 (07:30→20:33)
[2018-02-20] MEDS: SUCRALFATE SUSP 1GM/10ML UD PO ×4 (07:49→20:30)
[2018-02-20] MEDS: MAG SULF 1GM/100ML (MAG RUN) 1 GM in APPROPRIATE DILUENT 1 EA IV (07:50)
[2018-02-20] MEDS: POTASSIUM CHLORIDE 10 MEQ SR TABLET PO (07:50)
[2018-02-20] MEDS: ASPIRIN 81 MG ENTERIC TAB PO (07:50)
[2018-02-20] MEDS ORDERED: E-Z-GAS II EFFERVESCENT PACKET (SODIUM BICARB./CITRIC ACID/SIMETHICONE) As Ordered (08:06)
[2018-02-20] MEDS ORDERED: E-Z-PAQUE 96% w/w SUSP 176GM BTL As Ordered (08:06)
[2018-02-20] MEDS ORDERED: E-Z-HD 98% w/w 340GM SUSP BTL As Ordered (08:07)
[2018-02-20] MEDS ORDERED: GI COCKTAIL 50ML BTL(HYOSCYAMINE/MAALOX/LIDOCAINE VISCOUS)(1:3:1) PO (09:15)
[2018-02-20] MEDS: GI COCKTAIL 50ML BTL(HYOSCYAMINE/MAALOX/LIDOCAINE VISCOUS)(1:3:1) PO (09:45)
[2018-02-20 11:23] LABS: BEDSIDE GLUCOSE 132 MG/DL (70-105)
[2018-02-20] MEDS: PERCOCET 5MG/325MG TAB PO (12:31)
[2018-02-20 17:22] LABS: BEDSIDE GLUCOSE 191 MG/DL (70-105)
[2018-02-20 19:52] LABS: BEDSIDE GLUCOSE 207 MG/DL (70-105)
[2018-02-20] MEDS: PANTOPRAZOLE 40MG TAB (PROTONIX) PO (20:30)
[2018-02-20] MEDS: QUEtiapine FUMARATE 50 MG TAB PO (20:30)
[2018-02-20] MEDS: SIMVASTATIN 40 MG TAB PO (20:30)
[2018-02-21] MEDS: NS 1,000 ML IV ×3 (02:10→21:28)
[2018-02-21] MEDS: HEPARIN SOD (PORCINE) 5000 UNITS/ML VIAL SC ×3 (05:33→21:28)
[2018-02-21 06:29] LABS: HEMATOCRIT 41.4 % (42.0-52.0); HEMOGLOBIN 14.5 g/dl (13.5-17.5); MEAN CORPUSCULAR VOLUME 88.5 fl (80.0-96.0); PLATELET COUNT, AUTOMATED 146 10^3/uL (150-450); RED BLOOD COUNT 4.68 10^6/uL (4.30-6.10); RED CELL DISTRIBUTION WIDTH 11.9 % (11.5-14.5); WHITE BLOOD COUNT 7.4 10^3/uL (4.0-10.0)
[2018-02-21 06:43] LABS: ANION GAP 9 MEQ/L (8-16); BLOOD UREA NITROGEN 8 MG/DL (7-18); CALCIUM LEVEL 8.9 MG/DL (8.5-10.1); CARBON DIOXIDE LEVEL 24 MEQ/L (21-32); CHLORIDE LEVEL 110 MEQ/L (98-107); GLOMERULAR FILTRATION RATE > 60.0 (>56); GLUCOSE, FASTING 149 MG/DL (70-100); POTASSIUM SERUM 3.7 MEQ/L (3.5-5.1); SODIUM LEVEL 143 MEQ/L (136-145)
[2018-02-21] MEDS: HumaLOG INSULIN (NovoLOG) PER UNIT SC ×4 (07:08→20:11)
[2018-02-21] MEDS: SUCRALFATE SUSP 1GM/10ML UD PO ×4 (07:30→20:10)
[2018-02-21] MEDS ORDERED: E-Z-PAQUE 96% w/w SUSP 176GM BTL As Ordered ×2 (08:06→08:43)
[2018-02-21] MEDS ORDERED: E-Z-GAS II EFFERVESCENT PACKET (SODIUM BICARB./CITRIC ACID/SIMETHICONE) As Ordered (08:06)
[2018-02-21] MEDS ORDERED: E-Z-HD 98% w/w 340GM SUSP BTL As Ordered (08:06)
[2018-02-21] MEDS: ASPIRIN 81 MG ENTERIC TAB PO (13:37)
[2018-02-21] MEDS: PANTOPRAZOLE 40MG TAB (PROTONIX) PO ×2 (13:37→20:10)
[2018-02-21 16:41] LABS: BEDSIDE GLUCOSE 150 MG/DL (70-105)
[2018-02-21 19:46] LABS: BEDSIDE GLUCOSE 145 MG/DL (70-105)
[2018-02-21] MEDS: SIMVASTATIN 40 MG TAB PO (20:10)
[2018-02-21] MEDS: QUEtiapine FUMARATE 50 MG TAB PO (20:10)
[2018-02-22] MEDS: HEPARIN SOD (PORCINE) 5000 UNITS/ML VIAL SC ×3 (05:42→22:10)
[2018-02-22 06:38] LABS: HEMATOCRIT 40.2 % (42.0-52.0); MEAN CORPUSCULAR HEMOGLOBIN 31.1 pg (27.0-33.0); MEAN CORPUSCULAR HGB CONC 34.8 g/dl (32.0-36.5); MEAN CORPUSCULAR VOLUME 89.3 fl (80.0-96.0); PLATELET COUNT, AUTOMATED 151 10^3/uL (150-450); RED CELL DISTRIBUTION WIDTH 11.9 % (11.5-14.5); WHITE BLOOD COUNT 7.8 10^3/uL (4.0-10.0)
[2018-02-22 07:04] LABS: ANION GAP 8 MEQ/L (8-16); BLOOD UREA NITROGEN 10 MG/DL (7-18); CALCIUM LEVEL 9.3 MG/DL (8.5-10.1); CARBON DIOXIDE LEVEL 25 MEQ/L (21-32); CHLORIDE LEVEL 111 MEQ/L (98-107); CREATININE FOR GFR 1.07 MG/DL (0.70-1.30); GLOMERULAR FILTRATION RATE > 60.0 (>56); GLUCOSE, FASTING 143 MG/DL (70-100); POTASSIUM SERUM 3.6 MEQ/L (3.5-5.1); SODIUM LEVEL 144 MEQ/L (136-145)
[2018-02-22] MEDS: SUCRALFATE SUSP 1GM/10ML UD PO ×4 (07:25→20:32)
[2018-02-22] MEDS: PANTOPRAZOLE 40MG TAB (PROTONIX) PO ×2 (07:25→20:31)
[2018-02-22] MEDS: ASPIRIN 81 MG ENTERIC TAB PO (07:25)
[2018-02-22] MEDS: HumaLOG INSULIN (NovoLOG) PER UNIT SC ×4 (07:25→20:27)
[2018-02-22] MEDS: NS 1,000 ML IV (07:26)
[2018-02-22 11:56] LABS: BEDSIDE GLUCOSE 186 MG/DL (70-105)
[2018-02-22 16:52] LABS: BEDSIDE GLUCOSE 154 MG/DL (70-105)
[2018-02-22 20:26] LABS: BEDSIDE GLUCOSE 174 MG/DL (70-105)
[2018-02-22] MEDS: QUEtiapine FUMARATE 50 MG TAB PO (20:32)
[2018-02-22] MEDS: SIMVASTATIN 40 MG TAB PO (20:32)
[2018-02-22] MEDS: PERCOCET 5MG/325MG TAB PO (20:32)
[2018-02-23 06:15] LABS: HEMATOCRIT 37.1 % (42.0-52.0); HEMOGLOBIN 12.7 g/dl (13.5-17.5); MEAN CORPUSCULAR HEMOGLOBIN 31.4 pg (27.0-33.0); MEAN CORPUSCULAR HGB CONC 34.2 g/dl (32.0-36.5); MEAN CORPUSCULAR VOLUME 91.8 fl (80.0-96.0); PLATELET COUNT, AUTOMATED 145 10^3/uL (150-450); RED BLOOD COUNT 4.04 10^6/uL (4.30-6.10); WHITE BLOOD COUNT 7.1 10^3/uL (4.0-10.0)
[2018-02-23] MEDS: HEPARIN SOD (PORCINE) 5000 UNITS/ML VIAL SC (06:21)
[2018-02-23] MEDS: PERCOCET 5MG/325MG TAB PO ×2 (06:25→11:53)
[2018-02-23 06:36] LABS: ANION GAP 8 MEQ/L (8-16); BLOOD UREA NITROGEN 12 MG/DL (7-18); CALCIUM LEVEL 8.6 MG/DL (8.5-10.1); CARBON DIOXIDE LEVEL 27 MEQ/L (21-32); CHLORIDE LEVEL 105 MEQ/L (98-107); CREATININE FOR GFR 1.47 MG/DL (0.70-1.30); GLOMERULAR FILTRATION RATE 52.6 (>56); GLUCOSE, FASTING 153 MG/DL (70-100); MAGNESIUM LEVEL 1.8 MG/DL (1.8-2.4); POTASSIUM SERUM 3.6 MEQ/L (3.5-5.1); SODIUM LEVEL 140 MEQ/L (136-145)
[2018-02-23] MEDS: ASPIRIN 81 MG ENTERIC TAB PO (08:01)
[2018-02-23] MEDS: PANTOPRAZOLE 40MG TAB (PROTONIX) PO (08:01)
[2018-02-23] MEDS: SUCRALFATE SUSP 1GM/10ML UD PO ×4 (08:01→20:29)
[2018-02-23] MEDS: NS 1,000 ML IV (08:02)
[2018-02-23] MEDS: HumaLOG INSULIN (NovoLOG) PER UNIT SC ×4 (08:02→20:35)
[2018-02-23 11:38] LABS: BEDSIDE GLUCOSE 146 MG/DL (70-105)
[2018-02-23] MEDS ORDERED: HEPARIN SOD (PORCINE) 5000 UNITS/ML VIAL IV (11:45)
[2018-02-23 12:09] LABS: HEMATOCRIT 40.7 % (42.0-52.0); HEMOGLOBIN 13.6 g/dl (13.5-17.5); MEAN CORPUSCULAR HEMOGLOBIN 31.1 pg (27.0-33.0); MEAN CORPUSCULAR HGB CONC 33.4 g/dl (32.0-36.5); MEAN CORPUSCULAR VOLUME 93.1 fl (80.0-96.0); PLATELET COUNT, AUTOMATED 154 10^3/uL (150-450); RED BLOOD COUNT 4.37 10^6/uL (4.30-6.10); RED CELL DISTRIBUTION WIDTH 12.2 % (11.5-14.5); WHITE BLOOD COUNT 7.3 10^3/uL (4.0-10.0)
[2018-02-23 12:29] LABS: ANION GAP 7 MEQ/L (8-16); BLOOD UREA NITROGEN 13 MG/DL (7-18); CALCIUM LEVEL 8.7 MG/DL (8.5-10.1); CARBON DIOXIDE LEVEL 26 MEQ/L (21-32); CHLORIDE LEVEL 104 MEQ/L (98-107); CREATININE FOR GFR 1.55 MG/DL (0.70-1.30); GLOMERULAR FILTRATION RATE 49.4 (>56); GLUCOSE, FASTING 141 MG/DL (70-100); POTASSIUM SERUM 3.6 MEQ/L (3.5-5.1); SODIUM LEVEL 137 MEQ/L (136-145)
[2018-02-23] MEDS: HEPARIN DRIP 25,000 UNITS in APPROPRIATE DILUENT 1 EA IV (14:04)
[2018-02-23] MEDS: HEPARIN SOD (PORCINE) 5000 UNITS/ML VIAL IV (14:04)
[2018-02-23] MEDS: GI COCKTAIL 50ML BTL(HYOSCYAMINE/MAALOX/LIDOCAINE VISCOUS)(1:3:1) PO ×2 (14:07→17:31)
[2018-02-23] MEDS: PANTOPRAZOLE 40MG INJ (PROTONIX) (C9113) IV ×2 (14:34→20:29)
[2018-02-23 14:56] LABS: INR 0.99; PROTHROMBIN TIME 13.2 SECONDS (12.1-14.4)
[2018-02-23] MEDS: ACETAMINOPHEN TAB 650MG DOSE (2X325MG) PO (16:35)
[2018-02-23 17:27] LABS: BEDSIDE GLUCOSE 179 MG/DL (70-105)
[2018-02-23] MEDS: SIMVASTATIN 40 MG TAB PO (20:29)
[2018-02-23] MEDS: QUEtiapine FUMARATE 50 MG TAB PO (20:29)
[2018-02-23 20:36] LABS: BEDSIDE GLUCOSE 154 MG/DL (70-105)
[2018-02-23 21:46] LABS: ANION GAP 6 MEQ/L (8-16); BLOOD UREA NITROGEN 13 MG/DL (7-18); CALCIUM LEVEL 9.3 MG/DL (8.5-10.1); CARBON DIOXIDE LEVEL 28 MEQ/L (21-32); CHLORIDE LEVEL 103 MEQ/L (98-107); CREATININE FOR GFR 1.73 MG/DL (0.70-1.30); GLOMERULAR FILTRATION RATE 43.6 (>56); GLUCOSE, FASTING 144 MG/DL (70-100); POTASSIUM SERUM 4.2 MEQ/L (3.5-5.1); SODIUM LEVEL 137 MEQ/L (136-145)
[2018-02-23 22:14] LABS: PARTIAL THROMBOPLASTIN TIME > 240.0 SECONDS (25.4-37.6)
[2018-02-23] MEDS: ONDANSETRON 4MG/2ML VIAL (J2405) IV (22:22)
[2018-02-24] MEDS: GI COCKTAIL 50ML BTL(HYOSCYAMINE/MAALOX/LIDOCAINE VISCOUS)(1:3:1) PO ×4 (00:25→17:22)
[2018-02-24] MEDS: PERCOCET 5MG/325MG TAB PO ×3 (04:33→21:48)
[2018-02-24 05:20] LABS: HEMATOCRIT 39.4 % (42.0-52.0); HEMOGLOBIN 13.8 g/dl (13.5-17.5); MEAN CORPUSCULAR HEMOGLOBIN 31.2 pg (27.0-33.0); MEAN CORPUSCULAR VOLUME 89.1 fl (80.0-96.0); PLATELET COUNT, AUTOMATED 163 10^3/uL (150-450); RED BLOOD COUNT 4.42 10^6/uL (4.30-6.10); RED CELL DISTRIBUTION WIDTH 11.9 % (11.5-14.5); WHITE BLOOD COUNT 8.6 10^3/uL (4.0-10.0)
[2018-02-24 05:34] LABS: INR 1.03; PROTHROMBIN TIME 13.6 SECONDS (12.1-14.4)
[2018-02-24 05:35] LABS: ANION GAP 10 MEQ/L (8-16); BLOOD UREA NITROGEN 14 MG/DL (7-18); CALCIUM LEVEL 9.3 MG/DL (8.5-10.1); CARBON DIOXIDE LEVEL 25 MEQ/L (21-32); CHLORIDE LEVEL 102 MEQ/L (98-107); CREATININE FOR GFR 1.83 MG/DL (0.70-1.30); GLOMERULAR FILTRATION RATE 40.8 (>56); GLUCOSE, FASTING 145 MG/DL (70-100); SODIUM LEVEL 137 MEQ/L (136-145)
[2018-02-24 05:37] LABS: PARTIAL THROMBOPLASTIN TIME 109.9 SECONDS (25.4-37.6)
[2018-02-24] MEDS: LACTULOSE 20 GM/30 ML SYRUP UD PO (05:48)
[2018-02-24] MEDS ORDERED: BISACODYL 5 MG TAB PO (06:00)
[2018-02-24] MEDS: NS 1,000 ML IV (06:44)
[2018-02-24] MEDS: SUCRALFATE SUSP 1GM/10ML UD PO ×4 (07:30→21:47)
[2018-02-24] MEDS ORDERED: ONDANSETRON 4MG/2ML VIAL (J2405) IV (08:45)
[2018-02-24] MEDS ORDERED: SIMETHICONE 80 MG CHEW TAB PO (08:45)
[2018-02-24] MEDS: PANTOPRAZOLE 40MG INJ (PROTONIX) (C9113) IV ×2 (08:46→21:48)
[2018-02-24] MEDS: HumaLOG INSULIN (NovoLOG) PER UNIT SC ×4 (08:46→21:00)
[2018-02-24] MEDS: ASPIRIN 81 MG ENTERIC TAB PO (08:48)
[2018-02-24] MEDS ORDERED: MIRALAX *UNIT DOSE* 17GM PACKET PO (09:00)
[2018-02-24] MEDS ORDERED: SENOKOT S TAB PO (09:00)
[2018-02-24] MEDS: BISACODYL 10 MG SUPP PR (11:01)
[2018-02-24] MEDS: MAGNESIUM CITRATE 300 ML BTL PO (11:02)
[2018-02-24 12:26] LABS: BEDSIDE GLUCOSE 143 MG/DL (70-105)
[2018-02-24 13:16] LABS: PARTIAL THROMBOPLASTIN TIME 83.1 SECONDS (25.4-37.6)
[2018-02-24 17:17] LABS: BEDSIDE GLUCOSE 166 MG/DL (70-105)
[2018-02-24] MEDS: WARFARIN SOD 5 MG TAB PO (17:23)
[2018-02-24 19:14] LABS: PARTIAL THROMBOPLASTIN TIME 76.7 SECONDS (25.4-37.6)
[2018-02-24] MEDS: KCL 10MEQ IN D5/0.45NS 1000ML 1,000 ML IV (20:18)
[2018-02-24] MEDS: HEPARIN DRIP 25,000 UNITS in APPROPRIATE DILUENT 1 EA IV ×2 (20:20→20:26)
[2018-02-24] MEDS ORDERED: PILL CRUSHER/CUTTER 1 EACH XX (21:45)
[2018-02-24] MEDS: SIMVASTATIN 40 MG TAB PO (21:48)
[2018-02-24] MEDS: QUEtiapine FUMARATE 50 MG TAB PO (21:48)
[2018-02-24 22:05] LABS: BEDSIDE GLUCOSE 141 MG/DL (70-105)
[2018-02-25] MEDS: GI COCKTAIL 50ML BTL(HYOSCYAMINE/MAALOX/LIDOCAINE VISCOUS)(1:3:1) PO ×3 (00:05→11:59)
[2018-02-25] MEDS: PERCOCET 5MG/325MG TAB PO (03:25)
[2018-02-25 06:42] LABS: PARTIAL THROMBOPLASTIN TIME 72.7 SECONDS (25.4-37.6)
[2018-02-25 07:54] LABS: BEDSIDE GLUCOSE 196 MG/DL (70-105)
[2018-02-25] MEDS: KCL 10MEQ IN D5/0.45NS 1000ML 1,000 ML IV (08:05)
[2018-02-25] MEDS: ASPIRIN 81 MG ENTERIC TAB PO (08:15)
[2018-02-25] MEDS: SUCRALFATE SUSP 1GM/10ML UD PO ×2 (08:16→11:59)
[2018-02-25] MEDS: HumaLOG INSULIN (NovoLOG) PER UNIT SC ×3 (08:16→17:33)
[2018-02-25] MEDS: PANTOPRAZOLE 40MG INJ (PROTONIX) (C9113) IV ×2 (08:16→23:40)
[2018-02-25 10:19] LABS: HEMATOCRIT 38.9 % (42.0-52.0); HEMOGLOBIN 13.6 g/dl (13.5-17.5); MEAN CORPUSCULAR HEMOGLOBIN 31.4 pg (27.0-33.0); MEAN CORPUSCULAR VOLUME 89.8 fl (80.0-96.0); PLATELET COUNT, AUTOMATED 181 10^3/uL (150-450); RED BLOOD COUNT 4.33 10^6/uL (4.30-6.10); RED CELL DISTRIBUTION WIDTH 12.2 % (11.5-14.5); WHITE BLOOD COUNT 4.2 10^3/uL (4.0-10.0)
[2018-02-25 10:53] LABS: ALBUMIN 2.2 GM/DL (3.2-5.2); ALBUMIN/GLOBULIN RATIO 0.58 (1.00-1.93); ALKALINE PHOSPHATASE 73 U/L (45-117); ALT/SGPT 39 U/L (12-78); ANION GAP 7 MEQ/L (8-16); AST/SGOT 14 U/L (7-37); BILIRUBIN,TOTAL 0.4 MG/DL (0.2-1.0); BLOOD UREA NITROGEN 20 MG/DL (7-18); CARBON DIOXIDE LEVEL 30 MEQ/L (21-32); CHLORIDE LEVEL 99 MEQ/L (98-107); CREATININE FOR GFR 1.95 MG/DL (0.70-1.30); GLOMERULAR FILTRATION RATE 37.9 (>56); GLUCOSE, FASTING 159 MG/DL (70-100); MAGNESIUM LEVEL 2.4 MG/DL (1.8-2.4); POTASSIUM SERUM 4.5 MEQ/L (3.5-5.1); SODIUM LEVEL 136 MEQ/L (136-145)
[2018-02-25 11:55] LABS: BEDSIDE GLUCOSE 153 MG/DL (70-105)
[2018-02-25] MEDS ORDERED: MEROPENEM INJ 1 GM in APPROPRIATE DILUENT 1 EA IV (12:30)
[2018-02-25 12:51] LABS: INR 1.22; PROTHROMBIN TIME 15.6 SECONDS (12.1-14.4)
[2018-02-25 13:08] LABS: LACTIC ACID SEPSIS PROTOCOL 3.5 MMOL/L (0.4-2.0)
[2018-02-25] MEDS: D5W/0.45% SODIUM CHLORIDE 1,000 ML IV ×3 (13:26→23:53)
[2018-02-25] MEDS: MEROPENEM INJ 1 GM in APPROPRIATE DILUENT 1 EA IV (13:26)
[2018-02-25] MEDS: GASTROGRAFIN SOLUTION 30ML PO ×2 (17:11→20:16)
[2018-02-25] MEDS: NS 1,000 ML IV (17:11)
[2018-02-25] MEDS: WARFARIN SOD 5 MG TAB PO (17:19)
[2018-02-25 17:30] LABS: BEDSIDE GLUCOSE 140 MG/DL (70-105)
[2018-02-25 18:27] LABS: COMPLEMENT C4 38.7 MG/DL (10-40)
[2018-02-25 18:27] LABS: COMPLEMENT C3 147 MG/DL (90-180)
[2018-02-25 18:29] LABS: LACTIC ACID SEPSIS PROTOCOL 2.9 MMOL/L (0.4-2.0)
[2018-02-25 21:09] LABS: ERYTHROCYTE SEDIMENTATION RATE 60 mm/hr (0-20)
[2018-02-25] MEDS: GASTROGRAFIN SOLUTION 30ML (Q9963) PO (21:35)
[2018-02-25 22:11] LABS: ANION GAP 12 MEQ/L (8-16); BLOOD UREA NITROGEN 20 MG/DL (7-18); CALCIUM LEVEL 8.9 MG/DL (8.5-10.1); CARBON DIOXIDE LEVEL 26 MEQ/L (21-32); CHLORIDE LEVEL 99 MEQ/L (98-107); GLOMERULAR FILTRATION RATE 44.4 (>56); GLUCOSE, FASTING 144 MG/DL (70-100); POTASSIUM SERUM 4.1 MEQ/L (3.5-5.1); SODIUM LEVEL 137 MEQ/L (136-145)
[2018-02-25 22:18] LABS: AMORPHOUS SEDIMENT RFX SMALL (NEGATIVE); KETONE, URINE AUTO RFX NEGATIVE (NEGATIVE); MUCUS, URINE RFX SMALL (NEGATIVE); NITRITE, URINE AUTO RFX NEGATIVE (NEGATIVE); RBC, URINE AUTO RFX TNTC /HPF (0-3); SPECIFIC GRAVITY UR AUTO RFX 1.008 (1.002-1.035); SQUAM EPITHELIAL CELL UR AURFX 1 /HPF (0-6); WBC, URINE AUTO RFX 7 /HPF (0-3)
[2018-02-25 22:20] LABS: LEUKOCYTE ESTERASE UR AUTO RFX TRACE (NEGATIVE)
[2018-02-25 22:24] LABS: TOTAL PROTEIN,RANDOM URINE 27.7 MG/DL (0.0-12.0)
[2018-02-25 22:27] LABS: CREATININE,RANDOM URINE 64.7 MG/DL
[2018-02-25] MEDS: SIMVASTATIN 40 MG TAB PO (23:41)
[2018-02-25] MEDS: QUEtiapine FUMARATE 50 MG TAB PO (23:41)
[2018-02-26 00:07] LABS: BEDSIDE GLUCOSE 180 MG/DL (70-105)
[2018-02-26] MEDS: MEROPENEM INJ 1 GM in APPROPRIATE DILUENT 1 EA IV ×2 (00:47→12:31)
[2018-02-26] MEDS: HumaLOG INSULIN (NovoLOG) PER UNIT SC ×4 (00:48→17:29)
[2018-02-26] MEDS: D5W/0.45% SODIUM CHLORIDE 1,000 ML IV ×2 (04:50→16:30)
[2018-02-26 05:50] LABS: HEMATOCRIT 32.4 % (42.0-52.0); MEAN CORPUSCULAR HEMOGLOBIN 31.1 pg (27.0-33.0); MEAN CORPUSCULAR VOLUME 91.5 fl (80.0-96.0); PLATELET COUNT, AUTOMATED 164 10^3/uL (150-450); RED BLOOD COUNT 3.54 10^6/uL (4.30-6.10); RED CELL DISTRIBUTION WIDTH 12.2 % (11.5-14.5); WHITE BLOOD COUNT 3.4 10^3/uL (4.0-10.0)
[2018-02-26 06:18] LABS: ALBUMIN 1.7 GM/DL (3.2-5.2); ALBUMIN/GLOBULIN RATIO 0.52 (1.00-1.93); ALKALINE PHOSPHATASE 59 U/L (45-117); ALT/SGPT 24 U/L (12-78); ANION GAP 9 MEQ/L (8-16); AST/SGOT 10 U/L (7-37); BILIRUBIN,TOTAL 0.3 MG/DL (0.2-1.0); BLOOD UREA NITROGEN 17 MG/DL (7-18); CARBON DIOXIDE LEVEL 27 MEQ/L (21-32); CHLORIDE LEVEL 103 MEQ/L (98-107); CREATININE FOR GFR 1.42 MG/DL (0.70-1.30); GLOMERULAR FILTRATION RATE 54.7 (>56); GLUCOSE, FASTING 153 MG/DL (70-100); POTASSIUM SERUM 3.6 MEQ/L (3.5-5.1); SODIUM LEVEL 139 MEQ/L (136-145)
[2018-02-26 07:57] LABS: PARTIAL THROMBOPLASTIN TIME 53.6 SECONDS (25.4-37.6)
[2018-02-26] MEDS: PANTOPRAZOLE 40MG INJ (PROTONIX) (C9113) IV ×2 (08:39→20:22)
[2018-02-26] MEDS: ASPIRIN 81 MG ENTERIC TAB PO (08:40)
[2018-02-26 09:13] LABS: INR 1.66; PROTHROMBIN TIME 19.9 SECONDS (12.1-14.4)
[2018-02-26] MEDS ORDERED: HEPARIN SOD (PORCINE) 5000 UNITS/ML VIAL IV (09:30)
[2018-02-26 09:47] LABS: PARTIAL THROMBOPLASTIN TIME 48.6 SECONDS (25.4-37.6)
[2018-02-26] MEDS: HEPARIN DRIP 25,000 UNITS in APPROPRIATE DILUENT 1 EA IV (11:10)
[2018-02-26 11:11] LABS: DRVV SCREEN 53.5 SEC
[2018-02-26] MEDS: FLEET ENEMA PR (11:11)
[2018-02-26 11:24] LABS: PTT LUPUS TYPE ANTICOAG SCREEN 1.3 (0-1.2)
[2018-02-26 11:32] LABS: DRVV CONFIRM 40.2 SEC; LUPUS CONFIRM RATIO 1.1
[2018-02-26 11:35] LABS: NORMALIZED RATIO 1.18 (0.00-1.20)
[2018-02-26 12:13] LABS: BEDSIDE GLUCOSE 103 MG/DL (70-105)
[2018-02-26 13:11] LABS: HEMATOCRIT 30.8 % (42.0-52.0); HEMOGLOBIN 10.7 g/dl (13.5-17.5)
[2018-02-26 15:10] LABS: PARTIAL THROMBOPLASTIN TIME 158.8 SECONDS (25.4-37.6)
[2018-02-26] MEDS: ACETAMINOPHEN TAB 650MG DOSE (2X325MG) PO (17:20)
[2018-02-26 17:27] LABS: BEDSIDE GLUCOSE 112 MG/DL (70-105)
[2018-02-26] MEDS: SIMVASTATIN 40 MG TAB PO (20:22)
[2018-02-26] MEDS: QUEtiapine FUMARATE 50 MG TAB PO (20:22)
[2018-02-27 00:01] LABS: BEDSIDE GLUCOSE 107 MG/DL (70-105)
[2018-02-27] MEDS: MEROPENEM INJ 1 GM in APPROPRIATE DILUENT 1 EA IV ×2 (00:23→13:27)
[2018-02-27 04:58] LABS: HEMATOCRIT 30.6 % (42.0-52.0); HEMOGLOBIN 10.7 g/dl (13.5-17.5); MEAN CORPUSCULAR VOLUME 91.6 fl (80.0-96.0); PLATELET COUNT, AUTOMATED 204 10^3/uL (150-450); RED BLOOD COUNT 3.34 10^6/uL (4.30-6.10); RED CELL DISTRIBUTION WIDTH 12.5 % (11.5-14.5); WHITE BLOOD COUNT 5.1 10^3/uL (4.0-10.0)
[2018-02-27 05:07] LABS: PROTHROMBIN TIME 26.6 SECONDS (12.1-14.4)
[2018-02-27 05:08] LABS: PARTIAL THROMBOPLASTIN TIME 87.6 SECONDS (25.4-37.6)
[2018-02-27 05:13] LABS: ALBUMIN 1.7 GM/DL (3.2-5.2); ALBUMIN/GLOBULIN RATIO 0.57 (1.00-1.93); ALKALINE PHOSPHATASE 56 U/L (45-117); ALT/SGPT 20 U/L (12-78); ANION GAP 8 MEQ/L (8-16); AST/SGOT 11 U/L (7-37); BILIRUBIN,TOTAL 0.3 MG/DL (0.2-1.0); BLOOD UREA NITROGEN 13 MG/DL (7-18); CALCIUM LEVEL 7.8 MG/DL (8.5-10.1); CARBON DIOXIDE LEVEL 27 MEQ/L (21-32); CHLORIDE LEVEL 106 MEQ/L (98-107); CREATININE FOR GFR 1.03 MG/DL (0.70-1.30); GLOMERULAR FILTRATION RATE > 60.0 (>56); GLUCOSE, FASTING 108 MG/DL (70-100); MAGNESIUM LEVEL 1.9 MG/DL (1.8-2.4); POTASSIUM SERUM 3.2 MEQ/L (3.5-5.1); SODIUM LEVEL 141 MEQ/L (136-145); TOTAL PROTEIN 4.7 GM/DL (6.4-8.2)
[2018-02-27] MEDS ORDERED: KCL IV (05:30)
[2018-02-27] MEDS ORDERED: SWI IV (05:30)
[2018-02-27] MEDS ORDERED: DILUENT IV (05:30)
[2018-02-27] MEDS: HumaLOG INSULIN (NovoLOG) PER UNIT SC ×5 (06:03→21:00)
[2018-02-27] MEDS: KCL 10MEQ/100ML SWI (KRUN) 10 MEQ in APPROPRIATE DILUENT 1 EA IV ×4 (06:03→11:56)
[2018-02-27] MEDS ORDERED: KCL 10MEQ/100ML SWI (KRUN) 10 MEQ in APPROPRIATE DILUENT 1 EA IV (07:30)
[2018-02-27] MEDS: HEPARIN DRIP 25,000 UNITS in APPROPRIATE DILUENT 1 EA IV (09:19)
[2018-02-27] MEDS: MIRALAX *UNIT DOSE* 17GM PACKET PO (09:33)
[2018-02-27] MEDS: PANTOPRAZOLE 40MG INJ (PROTONIX) (C9113) IV ×2 (09:34→20:34)
[2018-02-27] MEDS: ASPIRIN 81 MG ENTERIC TAB PO (09:34)
[2018-02-27] MEDS: SUCRALFATE SUSP 1GM/10ML UD PO ×3 (12:00→20:34)
[2018-02-27 12:23] LABS: BEDSIDE GLUCOSE 100 MG/DL (70-105)
[2018-02-27 13:03] LABS: HEMATOCRIT 33.6 % (42.0-52.0); HEMOGLOBIN 11.5 g/dl (13.5-17.5)
[2018-02-27 17:12] LABS: BEDSIDE GLUCOSE 82 MG/DL (70-105)
[2018-02-27] MEDS: WARFARIN SOD 3 MG TAB PO (17:16)
[2018-02-27 18:43] LABS: HEMATOCRIT 33.6 % (42.0-52.0); HEMOGLOBIN 11.7 g/dl (13.5-17.5)
[2018-02-27] MEDS: QUEtiapine FUMARATE 50 MG TAB PO (20:34)
[2018-02-27] MEDS: SIMVASTATIN 40 MG TAB PO (20:34)
[2018-02-27 21:09] LABS: BEDSIDE GLUCOSE 170 MG/DL (70-105)
[2018-02-28] MEDS: MEROPENEM INJ 1 GM in APPROPRIATE DILUENT 1 EA IV
[2018-02-28 00:10] LABS: ANTI DOUBLE STRAND-DNA AB 1 IU/mL (0-9); COMPLEMENT TOTAL (CH50) > 60 U/mL (>41)
[2018-02-28 00:14] LABS: HEMATOCRIT 31.6 % (42.0-52.0)
[2018-02-28 05:38] LABS: HEMATOCRIT 32.6 % (42.0-52.0); HEMOGLOBIN 11.2 g/dl (13.5-17.5); MEAN CORPUSCULAR HEMOGLOBIN 30.7 pg (27.0-33.0); MEAN CORPUSCULAR HGB CONC 34.4 g/dl (32.0-36.5); MEAN CORPUSCULAR VOLUME 89.3 fl (80.0-96.0); PLATELET COUNT, AUTOMATED 239 10^3/uL (150-450); RED BLOOD COUNT 3.65 10^6/uL (4.30-6.10); RED CELL DISTRIBUTION WIDTH 12.3 % (11.5-14.5); WHITE BLOOD COUNT 6.9 10^3/uL (4.0-10.0)
[2018-02-28 05:48] LABS: INR 2.78; PROTHROMBIN TIME 29.9 SECONDS (12.1-14.4)
[2018-02-28 05:55] LABS: ALBUMIN 1.7 GM/DL (3.2-5.2); ALKALINE PHOSPHATASE 66 U/L (45-117); ALT/SGPT 24 U/L (12-78); ANION GAP 8 MEQ/L (8-16); AST/SGOT 17 U/L (7-37); BILIRUBIN,TOTAL 0.4 MG/DL (0.2-1.0); BLOOD UREA NITROGEN 7 MG/DL (7-18); CALCIUM LEVEL 8.1 MG/DL (8.5-10.1); CARBON DIOXIDE LEVEL 28 MEQ/L (21-32); CHLORIDE LEVEL 106 MEQ/L (98-107); CREATININE FOR GFR 0.92 MG/DL (0.70-1.30); GLOMERULAR FILTRATION RATE > 60.0 (>56); GLUCOSE, FASTING 102 MG/DL (70-100); MAGNESIUM LEVEL 1.8 MG/DL (1.8-2.4); POTASSIUM SERUM 3.4 MEQ/L (3.5-5.1); SODIUM LEVEL 142 MEQ/L (136-145); TOTAL PROTEIN 5.1 GM/DL (6.4-8.2)
[2018-02-28] MEDS: SUCRALFATE SUSP 1GM/10ML UD PO ×4 (06:36→21:56)
[2018-02-28] MEDS: POTASSIUM CHLORIDE 10 MEQ SR TABLET PO (06:48)
[2018-02-28] MEDS: HumaLOG INSULIN (NovoLOG) PER UNIT SC ×4 (08:00→21:00)
[2018-02-28] MEDS: MIRALAX *UNIT DOSE* 17GM PACKET PO (08:06)
[2018-02-28] MEDS: ASPIRIN 81 MG ENTERIC TAB PO (08:06)
[2018-02-28] MEDS: PANTOPRAZOLE 40MG INJ (PROTONIX) (C9113) IV ×2 (08:06→22:10)
[2018-02-28 11:47] LABS: BEDSIDE GLUCOSE 113 MG/DL (70-105)
[2018-02-28] MEDS: MOXIFLOXACIN 400 MG TAB PO (12:41)
[2018-02-28 17:10] LABS: BEDSIDE GLUCOSE 125 MG/DL (70-105)
[2018-02-28] MEDS: WARFARIN SOD 1 MG TAB PO (17:30)
[2018-02-28 20:39] LABS: BEDSIDE GLUCOSE 109 MG/DL (70-105)
[2018-02-28] MEDS: SIMVASTATIN 40 MG TAB PO (21:56)
[2018-02-28] MEDS: QUEtiapine FUMARATE 50 MG TAB PO (21:56)
[2018-03-01] MEDS: MOXIFLOXACIN 400 MG TAB PO (05:23)
[2018-03-01 07:22] LABS: HEMATOCRIT 31.9 % (42.0-52.0); MEAN CORPUSCULAR HEMOGLOBIN 31.3 pg (27.0-33.0); MEAN CORPUSCULAR HGB CONC 34.5 g/dl (32.0-36.5); MEAN CORPUSCULAR VOLUME 90.9 fl (80.0-96.0); PLATELET COUNT, AUTOMATED 260 10^3/uL (150-450); RED BLOOD COUNT 3.51 10^6/uL (4.30-6.10); RED CELL DISTRIBUTION WIDTH 12.4 % (11.5-14.5); WHITE BLOOD COUNT 7.2 10^3/uL (4.0-10.0)
[2018-03-01 07:30] LABS: ALBUMIN 1.6 GM/DL (3.2-5.2); ALKALINE PHOSPHATASE 62 U/L (45-117); ALT/SGPT 27 U/L (12-78); ANION GAP 9 MEQ/L (8-16); AST/SGOT 22 U/L (7-37); BILIRUBIN,TOTAL 0.2 MG/DL (0.2-1.0); BLOOD UREA NITROGEN 6 MG/DL (7-18); CALCIUM LEVEL 7.8 MG/DL (8.5-10.1); CARBON DIOXIDE LEVEL 26 MEQ/L (21-32); CHLORIDE LEVEL 106 MEQ/L (98-107); CREATININE FOR GFR 0.81 MG/DL (0.70-1.30); GLOMERULAR FILTRATION RATE > 60.0 (>56); GLUCOSE, FASTING 103 MG/DL (70-100); MAGNESIUM LEVEL 1.7 MG/DL (1.8-2.4); POTASSIUM SERUM 3.4 MEQ/L (3.5-5.1); SODIUM LEVEL 141 MEQ/L (136-145); TOTAL PROTEIN 4.8 GM/DL (6.4-8.2)
[2018-03-01] MEDS: HumaLOG INSULIN (NovoLOG) PER UNIT SC ×4 (07:30→20:34)
[2018-03-01 07:31] LABS: INR 3.31; PROTHROMBIN TIME 34.4 SECONDS (12.1-14.4)
[2018-03-01] MEDS: MIRALAX *UNIT DOSE* 17GM PACKET PO (07:55)
[2018-03-01] MEDS: SUCRALFATE SUSP 1GM/10ML UD PO ×4 (07:55→20:34)
[2018-03-01] MEDS: ASPIRIN 81 MG ENTERIC TAB PO (07:55)
[2018-03-01] MEDS: PANTOPRAZOLE 40MG INJ (PROTONIX) (C9113) IV ×2 (07:56→20:34)
[2018-03-01] MEDS: MAG SULF 1GM/100ML (MAG RUN) 1 GM in APPROPRIATE DILUENT 1 EA IV (09:32)
[2018-03-01] MEDS: KCL 10MEQ/100ML SWI (KRUN) 10 MEQ in APPROPRIATE DILUENT 1 EA IV ×3 (10:40→15:15)
[2018-03-01 11:37] LABS: BEDSIDE GLUCOSE 148 MG/DL (70-105)
[2018-03-01 16:39] LABS: BEDSIDE GLUCOSE 127 MG/DL (70-105)
[2018-03-01 19:43] LABS: BEDSIDE GLUCOSE 128 MG/DL (70-105)
[2018-03-01] MEDS: QUEtiapine FUMARATE 50 MG TAB PO (20:34)
[2018-03-01] MEDS: SIMVASTATIN 40 MG TAB PO (20:34)
[2018-03-01] MEDS: ACETAMINOPHEN TAB 650MG DOSE (2X325MG) PO (21:26)
[2018-03-02 06:23] LABS: HEMATOCRIT 32.4 % (42.0-52.0); HEMOGLOBIN 10.9 g/dl (13.5-17.5); MEAN CORPUSCULAR HEMOGLOBIN 31.2 pg (27.0-33.0); MEAN CORPUSCULAR HGB CONC 33.6 g/dl (32.0-36.5); MEAN CORPUSCULAR VOLUME 92.8 fl (80.0-96.0); PLATELET COUNT, AUTOMATED 281 10^3/uL (150-450); RED BLOOD COUNT 3.49 10^6/uL (4.30-6.10); RED CELL DISTRIBUTION WIDTH 12.5 % (11.5-14.5); WHITE BLOOD COUNT 8.5 10^3/uL (4.0-10.0)
[2018-03-02 06:38] LABS: INR 3.35; PROTHROMBIN TIME 34.7 SECONDS (12.1-14.4)
[2018-03-02 06:41] LABS: ALBUMIN 1.7 GM/DL (3.2-5.2); ALKALINE PHOSPHATASE 69 U/L (45-117); ALT/SGPT 34 U/L (12-78); ANION GAP 9 MEQ/L (8-16); AST/SGOT 24 U/L (7-37); BILIRUBIN,TOTAL 0.3 MG/DL (0.2-1.0); BLOOD UREA NITROGEN 5 MG/DL (7-18); CALCIUM LEVEL 7.8 MG/DL (8.5-10.1); CARBON DIOXIDE LEVEL 26 MEQ/L (21-32); CHLORIDE LEVEL 108 MEQ/L (98-107); CREATININE FOR GFR 0.84 MG/DL (0.70-1.30); GLOMERULAR FILTRATION RATE > 60.0 (>56); GLUCOSE, FASTING 96 MG/DL (70-100); MAGNESIUM LEVEL 1.9 MG/DL (1.8-2.4); POTASSIUM SERUM 3.6 MEQ/L (3.5-5.1); SODIUM LEVEL 143 MEQ/L (136-145); TOTAL PROTEIN 5.1 GM/DL (6.4-8.2)
[2018-03-02] MEDS: HumaLOG INSULIN (NovoLOG) PER UNIT SC ×4 (07:35→20:54)
[2018-03-02] MEDS: SUCRALFATE SUSP 1GM/10ML UD PO ×4 (08:39→20:54)
[2018-03-02] MEDS: ASPIRIN 81 MG ENTERIC TAB PO (08:39)
[2018-03-02] MEDS: PANTOPRAZOLE 40MG INJ (PROTONIX) (C9113) IV (08:39)
[2018-03-02] MEDS: MIRALAX *UNIT DOSE* 17GM PACKET PO (08:39)
[2018-03-02 11:53] LABS: BEDSIDE GLUCOSE 119 MG/DL (70-105)
[2018-03-02 16:58] LABS: BEDSIDE GLUCOSE 150 MG/DL (70-105)
[2018-03-02 20:00] LABS: BEDSIDE GLUCOSE 146 MG/DL (70-105)
[2018-03-02] MEDS: SIMVASTATIN 40 MG TAB PO (20:54)
[2018-03-02] MEDS: PANTOPRAZOLE 40MG TAB (PROTONIX) PO (20:54)
[2018-03-02] MEDS: QUEtiapine FUMARATE 50 MG TAB PO (20:54)
[2018-03-02] MEDS: ACETAMINOPHEN TAB 650MG DOSE (2X325MG) PO (20:57)
[2018-03-03 05:49] LABS: INR 2.67
[2018-03-03 06:13] LABS: BEDSIDE GLUCOSE 116 MG/DL (70-105)
[2018-03-03] MEDS: HumaLOG INSULIN (NovoLOG) PER UNIT SC ×4 (07:25→21:00)
[2018-03-03 07:29] LABS: BASO % 0.4 % (0.0-1.0); EOS # 0.2 10^3/uL (0.0-0.50); HEMATOCRIT 31.7 % (42.0-52.0); HEMOGLOBIN 11.1 g/dl (13.5-17.5); IMMATURE GRANULOCYTE % 1.4 % (0-3.0); LYMPH # 2.6 10^3/uL (1.5-4.5); LYMPH % 32.1 % (24.0-44.0); MEAN CORPUSCULAR HEMOGLOBIN 31.6 pg (27.0-33.0); MEAN CORPUSCULAR VOLUME 90.3 fl (80.0-96.0); MONO # 0.9 10^3/uL (0.0-0.8); MONO % 10.8 % (0.0-5.0); NEUTROPHILS # 4.3 10^3/uL (1.8-7.7); NEUTROPHILS % 53.3 % (36.0-66.0); PLATELET COUNT, AUTOMATED 332 10^3/uL (150-450); RED BLOOD COUNT 3.51 10^6/uL (4.30-6.10); RED CELL DISTRIBUTION WIDTH 12.3 % (11.5-14.5); WHITE BLOOD COUNT 8.1 10^3/uL (4.0-10.0)
[2018-03-03 07:36] LABS: ALBUMIN 1.8 GM/DL (3.2-5.2); ALKALINE PHOSPHATASE 76 U/L (45-117); ALT/SGPT 43 U/L (12-78); ANION GAP 10 MEQ/L (8-16); AST/SGOT 33 U/L (7-37); BILIRUBIN,TOTAL 0.3 MG/DL (0.2-1.0); BLOOD UREA NITROGEN 7 MG/DL (7-18); CALCIUM LEVEL 7.5 MG/DL (8.5-10.1); CARBON DIOXIDE LEVEL 26 MEQ/L (21-32); CHLORIDE LEVEL 108 MEQ/L (98-107); CREATININE FOR GFR 0.73 MG/DL (0.70-1.30); GLOMERULAR FILTRATION RATE > 60.0 (>56); GLUCOSE, FASTING 119 MG/DL (70-100); MAGNESIUM LEVEL 1.7 MG/DL (1.8-2.4); POTASSIUM SERUM 3.8 MEQ/L (3.5-5.1); SODIUM LEVEL 144 MEQ/L (136-145); TOTAL PROTEIN 4.8 GM/DL (6.4-8.2)
[2018-03-03] MEDS: ASPIRIN 81 MG ENTERIC TAB PO (09:07)
[2018-03-03] MEDS: PANTOPRAZOLE 40MG TAB (PROTONIX) PO ×2 (09:07→22:12)
[2018-03-03] MEDS: SUCRALFATE SUSP 1GM/10ML UD PO ×4 (09:07→22:12)
[2018-03-03] MEDS: MIRALAX *UNIT DOSE* 17GM PACKET PO (09:07)
[2018-03-03] MEDS: MAG SULF 1GM/100ML (MAG RUN) 1 GM in APPROPRIATE DILUENT 1 EA IV (11:58)
[2018-03-03 12:15] LABS: BEDSIDE GLUCOSE 142 MG/DL (70-105)
[2018-03-03 16:54] LABS: BEDSIDE GLUCOSE 187 MG/DL (70-105)
[2018-03-03] MEDS: WARFARIN SOD 2 MG TAB PO (17:21)
[2018-03-03 20:25] LABS: BEDSIDE GLUCOSE 133 MG/DL (70-105)
[2018-03-03] MEDS: QUEtiapine FUMARATE 50 MG TAB PO (22:12)
[2018-03-03] MEDS: SIMVASTATIN 40 MG TAB PO (22:12)
[2018-03-04 07:25] LABS: BASO % 0.4 % (0.0-1.0); EOS # 0.2 10^3/uL (0.0-0.50); HEMATOCRIT 32.5 % (42.0-52.0); IMMATURE GRANULOCYTE % 1.2 % (0-3.0); LYMPH # 2.3 10^3/uL (1.5-4.5); LYMPH % 24.9 % (24.0-44.0); MEAN CORPUSCULAR HEMOGLOBIN 31.5 pg (27.0-33.0); MEAN CORPUSCULAR HGB CONC 33.8 g/dl (32.0-36.5); MEAN CORPUSCULAR VOLUME 93.1 fl (80.0-96.0); MONO # 0.7 10^3/uL (0.0-0.8); MONO % 7.5 % (0.0-5.0); NEUTROPHILS # 5.9 10^3/uL (1.8-7.7); PLATELET COUNT, AUTOMATED 333 10^3/uL (150-450); RED BLOOD COUNT 3.49 10^6/uL (4.30-6.10); RED CELL DISTRIBUTION WIDTH 12.3 % (11.5-14.5); WHITE BLOOD COUNT 9.2 10^3/uL (4.0-10.0)
[2018-03-04 07:33] LABS: ALBUMIN 1.7 GM/DL (3.2-5.2); ALBUMIN/GLOBULIN RATIO 0.47 (1.00-1.93); ALKALINE PHOSPHATASE 71 U/L (45-117); ALT/SGPT 31 U/L (12-78); ANION GAP 6 MEQ/L (8-16); AST/SGOT 18 U/L (7-37); BILIRUBIN,TOTAL 0.2 MG/DL (0.2-1.0); BLOOD UREA NITROGEN 9 MG/DL (7-18); CALCIUM LEVEL 7.8 MG/DL (8.5-10.1); CARBON DIOXIDE LEVEL 28 MEQ/L (21-32); CHLORIDE LEVEL 107 MEQ/L (98-107); CREATININE FOR GFR 0.78 MG/DL (0.70-1.30); GLOMERULAR FILTRATION RATE > 60.0 (>56); GLUCOSE, FASTING 143 MG/DL (70-100); MAGNESIUM LEVEL 1.8 MG/DL (1.8-2.4); POTASSIUM SERUM 3.7 MEQ/L (3.5-5.1); SODIUM LEVEL 141 MEQ/L (136-145); TOTAL PROTEIN 5.3 GM/DL (6.4-8.2)
[2018-03-04 07:34] LABS: INR 1.96; PROTHROMBIN TIME 22.7 SECONDS (12.1-14.4)
[2018-03-04] MEDS: SUCRALFATE SUSP 1GM/10ML UD PO ×4 (07:56→20:58)
[2018-03-04] MEDS: PANTOPRAZOLE 40MG TAB (PROTONIX) PO ×2 (07:56→20:58)
[2018-03-04] MEDS: HumaLOG INSULIN (NovoLOG) PER UNIT SC ×4 (07:56→20:52)
[2018-03-04] MEDS: ASPIRIN 81 MG ENTERIC TAB PO (07:56)
[2018-03-04] MEDS: MIRALAX *UNIT DOSE* 17GM PACKET PO (07:57)
[2018-03-04 11:31] LABS: BEDSIDE GLUCOSE 145 MG/DL (70-105)
[2018-03-04 16:38] LABS: BEDSIDE GLUCOSE 132 MG/DL (70-105)
[2018-03-04] MEDS: WARFARIN SOD 3 MG TAB PO (16:56)
[2018-03-04 20:25] LABS: BEDSIDE GLUCOSE 128 MG/DL (70-105)
[2018-03-04] MEDS: QUEtiapine FUMARATE 50 MG TAB PO (20:58)
[2018-03-04] MEDS: SIMVASTATIN 40 MG TAB PO (20:58)
[2018-03-05 06:04] LABS: BASO % 0.4 % (0.0-1.0); EOS # 0.2 10^3/uL (0.0-0.50); EOS % 2.1 % (0.0-3.0); HEMOGLOBIN 10.8 g/dl (13.5-17.5); LYMPH # 2.5 10^3/uL (1.5-4.5); LYMPH % 26.8 % (24.0-44.0); MEAN CORPUSCULAR HEMOGLOBIN 31.3 pg (27.0-33.0); MEAN CORPUSCULAR HGB CONC 33.8 g/dl (32.0-36.5); MEAN CORPUSCULAR VOLUME 92.8 fl (80.0-96.0); MONO # 0.7 10^3/uL (0.0-0.8); MONO % 7.3 % (0.0-5.0); NEUTROPHILS # 5.9 10^3/uL (1.8-7.7); NEUTROPHILS % 62.4 % (36.0-66.0); PLATELET COUNT, AUTOMATED 350 10^3/uL (150-450); RED BLOOD COUNT 3.45 10^6/uL (4.30-6.10); RED CELL DISTRIBUTION WIDTH 12.5 % (11.5-14.5); WHITE BLOOD COUNT 9.4 10^3/uL (4.0-10.0)
[2018-03-05 06:18] LABS: INR 2.02; PROTHROMBIN TIME 23.2 SECONDS (12.1-14.4)
[2018-03-05 06:21] LABS: ALBUMIN 1.9 GM/DL (3.2-5.2); ALBUMIN/GLOBULIN RATIO 0.54 (1.00-1.93); ALKALINE PHOSPHATASE 73 U/L (45-117); ALT/SGPT 26 U/L (12-78); ANION GAP 9 MEQ/L (8-16); AST/SGOT 20 U/L (7-37); BILIRUBIN,TOTAL 0.2 MG/DL (0.2-1.0); BLOOD UREA NITROGEN 10 MG/DL (7-18); CARBON DIOXIDE LEVEL 26 MEQ/L (21-32); CHLORIDE LEVEL 107 MEQ/L (98-107); CREATININE FOR GFR 0.78 MG/DL (0.70-1.30); GLOMERULAR FILTRATION RATE > 60.0 (>56); GLUCOSE, FASTING 111 MG/DL (70-100); MAGNESIUM LEVEL 1.7 MG/DL (1.8-2.4); POTASSIUM SERUM 3.9 MEQ/L (3.5-5.1); SODIUM LEVEL 142 MEQ/L (136-145); TOTAL PROTEIN 5.4 GM/DL (6.4-8.2)
[2018-03-05] MEDS: SUCRALFATE SUSP 1GM/10ML UD PO ×4 (08:12→21:32)
[2018-03-05] MEDS: MIRALAX *UNIT DOSE* 17GM PACKET PO (08:13)
[2018-03-05] MEDS: ASPIRIN 81 MG ENTERIC TAB PO (08:13)
[2018-03-05] MEDS: PANTOPRAZOLE 40MG TAB (PROTONIX) PO ×2 (08:13→21:32)
[2018-03-05] MEDS: HumaLOG INSULIN (NovoLOG) PER UNIT SC ×4 (08:13→20:03)
[2018-03-05 11:46] LABS: BEDSIDE GLUCOSE 137 MG/DL (70-105)
[2018-03-05] MEDS: BISACODYL 10 MG SUPP PR (13:02)
[2018-03-05] MEDS ORDERED: MOM 30ML SUSPENSION UDC PO (13:30)
[2018-03-05] MEDS ORDERED: SENOKOT S TAB PO (13:30)
[2018-03-05] MEDS: MAG SULF 1GM/100ML (MAG RUN) 1 GM in APPROPRIATE DILUENT 1 EA IV (15:00)
[2018-03-05 15:26] LABS: APPEARANCE, URINE CLEAR (CLEAR); BACTERIA, URINE AUTO NEGATIVE (NEGATIVE); BILIRUBIN, URINE AUTO NEGATIVE (NEGATIVE); BLOOD, URINE BLOOD NEGATIVE (NEGATIVE); COLOR, URINE STRAW (YELLOW); GLUCOSE, URINE (UA) AUTO NEGATIVE (NEGATIVE); KETONE, URINE AUTO NEGATIVE (NEGATIVE); LEUKOCYTE ESTERASE, URINE AUTO NEGATIVE (NEGATIVE); MUCUS, URINE SMALL (NEGATIVE); NITRITE, URINE AUTO NEGATIVE (NEGATIVE); PROTEIN, URINE AUTO NEGATIVE (NEGATIVE); RBC, URINE AUTO 3 /HPF (0-3); SPECIFIC GRAVITY URINE AUTO 1.009 (1.002-1.035); SQUAMOUS EPITHELIAL CELL UR AU 0 /HPF (0-6); UROBILINOGEN, URINE AUTO 0.2 mg/dL (0.0-2.0); WBC, URINE AUTO 1 /HPF (0-3)
[2018-03-05 17:24] LABS: BEDSIDE GLUCOSE 152 MG/DL (70-105)
[2018-03-05] MEDS: WARFARIN SOD 3 MG TAB PO (17:27)
[2018-03-05 20:05] LABS: BEDSIDE GLUCOSE 132 MG/DL (70-105)
[2018-03-05] MEDS: QUEtiapine FUMARATE 50 MG TAB PO (21:00)
[2018-03-05] MEDS: SIMVASTATIN 40 MG TAB PO (21:31)
[2018-03-05] MEDS: TAMSULOSIN 0.4 MG CAP PO (21:32)
[2018-03-06 00:06] LABS: ANTINUCLEAR ANTIBODIES DIRECT Negative (Negative)
[2018-03-06 06:09] LABS: BASO % 0.4 % (0.0-1.0); EOS # 0.2 10^3/uL (0.0-0.50); EOS % 2.3 % (0.0-3.0); HEMATOCRIT 32.3 % (42.0-52.0); HEMOGLOBIN 10.9 g/dl (13.5-17.5); IMMATURE GRANULOCYTE % 1.1 % (0-3.0); LYMPH # 2.5 10^3/uL (1.5-4.5); LYMPH % 27.2 % (24.0-44.0); MEAN CORPUSCULAR HEMOGLOBIN 31.2 pg (27.0-33.0); MEAN CORPUSCULAR HGB CONC 33.7 g/dl (32.0-36.5); MEAN CORPUSCULAR VOLUME 92.6 fl (80.0-96.0); MONO # 0.6 10^3/uL (0.0-0.8); MONO % 6.3 % (0.0-5.0); NEUTROPHILS # 5.8 10^3/uL (1.8-7.7); NEUTROPHILS % 62.7 % (36.0-66.0); PLATELET COUNT, AUTOMATED 375 10^3/uL (150-450); RED BLOOD COUNT 3.49 10^6/uL (4.30-6.10); RED CELL DISTRIBUTION WIDTH 12.7 % (11.5-14.5); WHITE BLOOD COUNT 9.2 10^3/uL (4.0-10.0)
[2018-03-06 06:34] LABS: ALBUMIN/GLOBULIN RATIO 0.54 (1.00-1.93); ALKALINE PHOSPHATASE 67 U/L (45-117); ALT/SGPT 25 U/L (12-78); ANION GAP 12 MEQ/L (8-16); AST/SGOT 15 U/L (7-37); BILIRUBIN,TOTAL 0.2 MG/DL (0.2-1.0); BLOOD UREA NITROGEN 12 MG/DL (7-18); CALCIUM LEVEL 8.2 MG/DL (8.5-10.1); CARBON DIOXIDE LEVEL 24 MEQ/L (21-32); CHLORIDE LEVEL 107 MEQ/L (98-107); CREATININE FOR GFR 0.75 MG/DL (0.70-1.30); GLOMERULAR FILTRATION RATE > 60.0 (>56); GLUCOSE, FASTING 125 MG/DL (70-100); MAGNESIUM LEVEL 2.1 MG/DL (1.8-2.4); POTASSIUM SERUM 3.9 MEQ/L (3.5-5.1); SODIUM LEVEL 143 MEQ/L (136-145); TOTAL PROTEIN 5.7 GM/DL (6.4-8.2)
[2018-03-06] MEDS: SUCRALFATE SUSP 1GM/10ML UD PO ×4 (08:15→23:23)
[2018-03-06] MEDS: MIRALAX *UNIT DOSE* 17GM PACKET PO (08:16)
[2018-03-06] MEDS: HumaLOG INSULIN (NovoLOG) PER UNIT SC ×4 (08:16→20:34)
[2018-03-06] MEDS: PANTOPRAZOLE 40MG TAB (PROTONIX) PO ×2 (08:16→22:12)
[2018-03-06] MEDS: ASPIRIN 81 MG ENTERIC TAB PO (08:16)
[2018-03-06 11:48] LABS: BEDSIDE GLUCOSE 137 MG/DL (70-105)
[2018-03-06 13:29] LABS: TROPONIN I 0.03 NG/ML (< 0.10)
[2018-03-06 13:33] LABS: TROPONIN I 0.03 NG/ML (< 0.10)
[2018-03-06 17:14] LABS: BEDSIDE GLUCOSE 105 MG/DL (70-105)
[2018-03-06] MEDS: WARFARIN SOD 3 MG TAB PO (18:53)
[2018-03-06 20:37] LABS: BEDSIDE GLUCOSE 104 MG/DL (70-105)
[2018-03-06] MEDS: QUEtiapine FUMARATE 50 MG TAB PO (22:11)
[2018-03-06] MEDS: TAMSULOSIN 0.4 MG CAP PO (22:12)
[2018-03-06] MEDS: SIMVASTATIN 40 MG TAB PO (22:12)
[2018-03-07 06:40] LABS: BASO % 0.3 % (0.0-1.0); EOS # 0.2 10^3/uL (0.0-0.50); EOS % 2.4 % (0.0-3.0); HEMATOCRIT 31.8 % (42.0-52.0); HEMOGLOBIN 10.9 g/dl (13.5-17.5); IMMATURE GRANULOCYTE % 0.6 % (0-3.0); LYMPH # 2.4 10^3/uL (1.5-4.5); LYMPH % 24.4 % (24.0-44.0); MEAN CORPUSCULAR HEMOGLOBIN 31.3 pg (27.0-33.0); MEAN CORPUSCULAR HGB CONC 34.3 g/dl (32.0-36.5); MEAN CORPUSCULAR VOLUME 91.4 fl (80.0-96.0); MONO # 0.6 10^3/uL (0.0-0.8); MONO % 5.6 % (0.0-5.0); NEUTROPHILS # 6.6 10^3/uL (1.8-7.7); NEUTROPHILS % 66.7 % (36.0-66.0); PLATELET COUNT, AUTOMATED 378 10^3/uL (150-450); RED BLOOD COUNT 3.48 10^6/uL (4.30-6.10); RED CELL DISTRIBUTION WIDTH 12.5 % (11.5-14.5); WHITE BLOOD COUNT 9.9 10^3/uL (4.0-10.0)
[2018-03-07 06:55] LABS: INR 2.66; PROTHROMBIN TIME 28.9 SECONDS (12.1-14.4)
[2018-03-07 06:59] LABS: ALBUMIN 2.2 GM/DL (3.2-5.2); ALBUMIN/GLOBULIN RATIO 0.58 (1.00-1.93); ALKALINE PHOSPHATASE 71 U/L (45-117); ALT/SGPT 26 U/L (12-78); ANION GAP 11 MEQ/L (8-16); AST/SGOT 18 U/L (7-37); BILIRUBIN,TOTAL 0.3 MG/DL (0.2-1.0); BLOOD UREA NITROGEN 13 MG/DL (7-18); CALCIUM LEVEL 8.6 MG/DL (8.5-10.1); CARBON DIOXIDE LEVEL 25 MEQ/L (21-32); CHLORIDE LEVEL 104 MEQ/L (98-107); CREATININE FOR GFR 0.83 MG/DL (0.70-1.30); GLOMERULAR FILTRATION RATE > 60.0 (>56); GLUCOSE, FASTING 111 MG/DL (70-100); MAGNESIUM LEVEL 2.1 MG/DL (1.8-2.4); POTASSIUM SERUM 4.1 MEQ/L (3.5-5.1); SODIUM LEVEL 140 MEQ/L (136-145)
[2018-03-07] MEDS: SUCRALFATE SUSP 1GM/10ML UD PO ×4 (08:40→21:51)
[2018-03-07] MEDS: HumaLOG INSULIN (NovoLOG) PER UNIT SC ×4 (08:41→21:00)
[2018-03-07] MEDS: MIRALAX *UNIT DOSE* 17GM PACKET PO (08:41)
[2018-03-07] MEDS: ASPIRIN 81 MG ENTERIC TAB PO (08:41)
[2018-03-07] MEDS: PANTOPRAZOLE 40MG TAB (PROTONIX) PO ×2 (08:41→21:50)
[2018-03-07 11:39] LABS: BEDSIDE GLUCOSE 137 MG/DL (70-105)
[2018-03-07 16:48] LABS: BEDSIDE GLUCOSE 117 MG/DL (70-105)
[2018-03-07] MEDS: WARFARIN SOD 3 MG TAB PO (17:06)
[2018-03-07 20:55] LABS: BEDSIDE GLUCOSE 132 MG/DL (70-105)
[2018-03-07] MEDS: SIMVASTATIN 40 MG TAB PO (21:50)
[2018-03-07] MEDS: QUEtiapine FUMARATE 50 MG TAB PO (21:50)
[2018-03-07] MEDS: TAMSULOSIN 0.4 MG CAP PO (21:51)
[2018-03-08 06:16] LABS: BASO % 0.3 % (0.0-1.0); EOS # 0.2 10^3/uL (0.0-0.50); EOS % 1.7 % (0.0-3.0); HEMOGLOBIN 11.7 g/dl (13.5-17.5); IMMATURE GRANULOCYTE % 0.6 % (0-3.0); LYMPH # 2.7 10^3/uL (1.5-4.5); LYMPH % 26.5 % (24.0-44.0); MEAN CORPUSCULAR HEMOGLOBIN 31.4 pg (27.0-33.0); MEAN CORPUSCULAR HGB CONC 34.4 g/dl (32.0-36.5); MEAN CORPUSCULAR VOLUME 91.2 fl (80.0-96.0); MONO # 0.7 10^3/uL (0.0-0.8); MONO % 6.5 % (0.0-5.0); NEUTROPHILS # 6.4 10^3/uL (1.8-7.7); NEUTROPHILS % 64.4 % (36.0-66.0); PLATELET COUNT, AUTOMATED 407 10^3/uL (150-450); RED BLOOD COUNT 3.73 10^6/uL (4.30-6.10); RED CELL DISTRIBUTION WIDTH 12.4 % (11.5-14.5)
[2018-03-08 06:27] LABS: INR 2.95; PROTHROMBIN TIME 31.4 SECONDS (12.1-14.4)
[2018-03-08 06:36] LABS: ALBUMIN 2.4 GM/DL (3.2-5.2); ALBUMIN/GLOBULIN RATIO 0.56 (1.00-1.93); ALKALINE PHOSPHATASE 78 U/L (45-117); ALT/SGPT 33 U/L (12-78); ANION GAP 11 MEQ/L (8-16); AST/SGOT 23 U/L (7-37); BILIRUBIN,TOTAL 0.3 MG/DL (0.2-1.0); BLOOD UREA NITROGEN 14 MG/DL (7-18); CALCIUM LEVEL 8.8 MG/DL (8.5-10.1); CARBON DIOXIDE LEVEL 25 MEQ/L (21-32); CHLORIDE LEVEL 103 MEQ/L (98-107); CREATININE FOR GFR 0.84 MG/DL (0.70-1.30); GLOMERULAR FILTRATION RATE > 60.0 (>56); GLUCOSE, FASTING 118 MG/DL (70-100); MAGNESIUM LEVEL 1.8 MG/DL (1.8-2.4); POTASSIUM SERUM 4.2 MEQ/L (3.5-5.1); SODIUM LEVEL 139 MEQ/L (136-145); TOTAL PROTEIN 6.7 GM/DL (6.4-8.2)
[2018-03-08] MEDS: PANTOPRAZOLE 40MG TAB (PROTONIX) PO ×2 (08:21→20:42)
[2018-03-08] MEDS: SUCRALFATE SUSP 1GM/10ML UD PO ×4 (08:22→20:41)
[2018-03-08] MEDS: MIRALAX *UNIT DOSE* 17GM PACKET PO (08:22)
[2018-03-08] MEDS: ASPIRIN 81 MG ENTERIC TAB PO (08:22)
[2018-03-08] MEDS: HumaLOG INSULIN (NovoLOG) PER UNIT SC ×4 (08:23→20:32)
[2018-03-08 11:21] LABS: BEDSIDE GLUCOSE 134 MG/DL (70-105)
[2018-03-08 16:42] LABS: BEDSIDE GLUCOSE 141 MG/DL (70-105)
[2018-03-08] MEDS: WARFARIN SOD 3 MG TAB PO (17:20)
[2018-03-08 20:07] LABS: BEDSIDE GLUCOSE 192 MG/DL (70-105)
[2018-03-08] MEDS: TAMSULOSIN 0.4 MG CAP PO (20:42)
[2018-03-08] MEDS: SIMVASTATIN 40 MG TAB PO (20:42)
[2018-03-08] MEDS: QUEtiapine FUMARATE 50 MG TAB PO (20:42)
[2018-03-09 06:13] LABS: BASO # 0.1 10^3/uL (0.0-0.2); BASO % 0.6 % (0.0-1.0); EOS # 0.2 10^3/uL (0.0-0.50); HEMATOCRIT 33.4 % (42.0-52.0); HEMOGLOBIN 11.2 g/dl (13.5-17.5); IMMATURE GRANULOCYTE % 0.5 % (0-3.0); LYMPH # 2.8 10^3/uL (1.5-4.5); LYMPH % 29.4 % (24.0-44.0); MEAN CORPUSCULAR HEMOGLOBIN 31.2 pg (27.0-33.0); MEAN CORPUSCULAR HGB CONC 33.5 g/dl (32.0-36.5); MONO # 0.7 10^3/uL (0.0-0.8); MONO % 7.4 % (0.0-5.0); NEUTROPHILS # 5.8 10^3/uL (1.8-7.7); NEUTROPHILS % 60.1 % (36.0-66.0); PLATELET COUNT, AUTOMATED 399 10^3/uL (150-450); RED BLOOD COUNT 3.59 10^6/uL (4.30-6.10); RED CELL DISTRIBUTION WIDTH 12.5 % (11.5-14.5); WHITE BLOOD COUNT 9.7 10^3/uL (4.0-10.0)
[2018-03-09 06:21] LABS: INR 4.92; PROTHROMBIN TIME 47.1 SECONDS (12.1-14.4)
[2018-03-09 06:46] LABS: ALBUMIN 2.5 GM/DL (3.2-5.2); ALBUMIN/GLOBULIN RATIO 0.74 (1.00-1.93); ALKALINE PHOSPHATASE 77 U/L (45-117); ALT/SGPT 38 U/L (12-78); ANION GAP 11 MEQ/L (8-16); AST/SGOT 27 U/L (7-37); BILIRUBIN,TOTAL 0.2 MG/DL (0.2-1.0); BLOOD UREA NITROGEN 20 MG/DL (7-18); CALCIUM LEVEL 8.3 MG/DL (8.5-10.1); CARBON DIOXIDE LEVEL 23 MEQ/L (21-32); CHLORIDE LEVEL 105 MEQ/L (98-107); CREATININE FOR GFR 0.85 MG/DL (0.70-1.30); GLOMERULAR FILTRATION RATE > 60.0 (>56); GLUCOSE, FASTING 117 MG/DL (70-100); MAGNESIUM LEVEL 1.8 MG/DL (1.8-2.4); SODIUM LEVEL 139 MEQ/L (136-145); TOTAL PROTEIN 5.9 GM/DL (6.4-8.2)
[2018-03-09] MEDS: MIRALAX *UNIT DOSE* 17GM PACKET PO (08:27)
[2018-03-09] MEDS: PANTOPRAZOLE 40MG TAB (PROTONIX) PO ×2 (08:27→20:24)
[2018-03-09] MEDS: ASPIRIN 81 MG ENTERIC TAB PO (08:27)
[2018-03-09] MEDS: SUCRALFATE SUSP 1GM/10ML UD PO ×4 (08:27→20:23)
[2018-03-09] MEDS: WARFARIN SOD 3 MG TAB PO (08:29)
[2018-03-09] MEDS: HumaLOG INSULIN (NovoLOG) PER UNIT SC ×4 (08:29→20:50)
[2018-03-09 11:56] LABS: BEDSIDE GLUCOSE 184 MG/DL (70-105)
[2018-03-09 16:55] LABS: BEDSIDE GLUCOSE 195 MG/DL (70-105)
[2018-03-09] MEDS: SIMVASTATIN 40 MG TAB PO (20:24)
[2018-03-09] MEDS: TAMSULOSIN 0.4 MG CAP PO (20:24)
[2018-03-09] MEDS: QUEtiapine FUMARATE 50 MG TAB PO (20:24)
[2018-03-09] MEDS: FINASTERIDE 5 MG TAB PO (20:24)
[2018-03-09 20:46] LABS: BEDSIDE GLUCOSE 164 MG/DL (70-105)
[2018-03-10 06:20] LABS: BASO # 0.1 10^3/uL (0.0-0.2); BASO % 0.5 % (0.0-1.0); EOS # 0.2 10^3/uL (0.0-0.50); EOS % 2.1 % (0.0-3.0); HEMATOCRIT 31.4 % (42.0-52.0); HEMOGLOBIN 10.6 g/dl (13.5-17.5); IMMATURE GRANULOCYTE % 0.5 % (0-3.0); LYMPH # 2.7 10^3/uL (1.5-4.5); LYMPH % 28.2 % (24.0-44.0); MEAN CORPUSCULAR HEMOGLOBIN 31.2 pg (27.0-33.0); MEAN CORPUSCULAR HGB CONC 33.8 g/dl (32.0-36.5); MEAN CORPUSCULAR VOLUME 92.4 fl (80.0-96.0); MONO # 0.8 10^3/uL (0.0-0.8); MONO % 8.3 % (0.0-5.0); NEUTROPHILS # 5.7 10^3/uL (1.8-7.7); NEUTROPHILS % 60.4 % (36.0-66.0); PLATELET COUNT, AUTOMATED 391 10^3/uL (150-450); RED CELL DISTRIBUTION WIDTH 12.6 % (11.5-14.5); WHITE BLOOD COUNT 9.4 10^3/uL (4.0-10.0)
[2018-03-10 06:29] LABS: INR 4.41; PROTHROMBIN TIME 43.2 SECONDS (12.1-14.4)
[2018-03-10 06:45] LABS: ALBUMIN 2.4 GM/DL (3.2-5.2); ALBUMIN/GLOBULIN RATIO 0.62 (1.00-1.93); ALKALINE PHOSPHATASE 69 U/L (45-117); ALT/SGPT 31 U/L (12-78); ANION GAP 10 MEQ/L (8-16); AST/SGOT 18 U/L (7-37); BILIRUBIN,TOTAL 0.2 MG/DL (0.2-1.0); BLOOD UREA NITROGEN 22 MG/DL (7-18); CALCIUM LEVEL 8.6 MG/DL (8.5-10.1); CARBON DIOXIDE LEVEL 23 MEQ/L (21-32); CHLORIDE LEVEL 111 MEQ/L (98-107); GLOMERULAR FILTRATION RATE > 60.0 (>56); GLUCOSE, FASTING 125 MG/DL (70-100); MAGNESIUM LEVEL 1.9 MG/DL (1.8-2.4); POTASSIUM SERUM 3.8 MEQ/L (3.5-5.1); SODIUM LEVEL 144 MEQ/L (136-145); TOTAL PROTEIN 6.3 GM/DL (6.4-8.2)
[2018-03-10] MEDS: SUCRALFATE SUSP 1GM/10ML UD PO ×4 (07:30→20:31)
[2018-03-10] MEDS: HumaLOG INSULIN (NovoLOG) PER UNIT SC ×4 (08:55→20:27)
[2018-03-10] MEDS: ASPIRIN 81 MG ENTERIC TAB PO (08:56)
[2018-03-10] MEDS: PANTOPRAZOLE 40MG TAB (PROTONIX) PO ×2 (08:56→20:31)
[2018-03-10] MEDS: MIRALAX *UNIT DOSE* 17GM PACKET PO (08:56)
[2018-03-10 11:27] LABS: BEDSIDE GLUCOSE 135 MG/DL (70-105)
[2018-03-10 16:38] LABS: BEDSIDE GLUCOSE 117 MG/DL (70-105)
[2018-03-10 20:24] LABS: BEDSIDE GLUCOSE 168 MG/DL (70-105)
[2018-03-10] MEDS: QUEtiapine FUMARATE 50 MG TAB PO (20:31)
[2018-03-10] MEDS: FINASTERIDE 5 MG TAB PO (20:31)
[2018-03-10] MEDS: SIMVASTATIN 40 MG TAB PO (20:31)
[2018-03-10] MEDS: TAMSULOSIN 0.4 MG CAP PO (20:31)
[2018-03-11 06:35] LABS: BEDSIDE GLUCOSE 124 MG/DL (70-105)
[2018-03-11] MEDS: SUCRALFATE SUSP 1GM/10ML UD PO ×4 (08:09→20:12)
[2018-03-11] MEDS: MIRALAX *UNIT DOSE* 17GM PACKET PO (08:10)
[2018-03-11] MEDS: ASPIRIN 81 MG ENTERIC TAB PO (08:11)
[2018-03-11] MEDS: HumaLOG INSULIN (NovoLOG) PER UNIT SC ×4 (08:11→19:56)
[2018-03-11] MEDS: PANTOPRAZOLE 40MG TAB (PROTONIX) PO ×2 (08:11→20:12)
[2018-03-11 10:10] LABS: HEMATOCRIT 32.9 % (42.0-52.0); HEMOGLOBIN 11.1 g/dl (13.5-17.5); MEAN CORPUSCULAR HEMOGLOBIN 31.6 pg (27.0-33.0); MEAN CORPUSCULAR HGB CONC 33.7 g/dl (32.0-36.5); MEAN CORPUSCULAR VOLUME 93.7 fl (80.0-96.0); PLATELET COUNT, AUTOMATED 392 10^3/uL (150-450); RED BLOOD COUNT 3.51 10^6/uL (4.30-6.10); RED CELL DISTRIBUTION WIDTH 12.7 % (11.5-14.5); WHITE BLOOD COUNT 11.4 10^3/uL (4.0-10.0)
[2018-03-11 10:26] LABS: INR 3.68; PROTHROMBIN TIME 37.4 SECONDS (12.1-14.4)
[2018-03-11] MEDS: WARFARIN SOD 3 MG TAB PO (11:04)
[2018-03-11 11:39] LABS: BEDSIDE GLUCOSE 178 MG/DL (70-105)
[2018-03-11 12:53] LABS: BLOOD UREA NITROGEN 19 MG/DL (7-18); CALCIUM LEVEL 8.2 MG/DL (8.5-10.1); CARBON DIOXIDE LEVEL 22 MEQ/L (21-32); CHLORIDE LEVEL 109 MEQ/L (98-107); GLOMERULAR FILTRATION RATE > 60.0 (>56); POTASSIUM SERUM 3.8 MEQ/L (3.5-5.1); SODIUM LEVEL 142 MEQ/L (136-145)
[2018-03-11 14:02] LABS: ANION GAP 11 MEQ/L (8-16)
[2018-03-11 15:03] LABS: GLUCOSE, FASTING 143 MG/DL (70-100)
[2018-03-11 16:47] LABS: BEDSIDE GLUCOSE 170 MG/DL (70-105)
[2018-03-11 19:49] LABS: BEDSIDE GLUCOSE 133 MG/DL (70-105)
[2018-03-11] MEDS: TAMSULOSIN 0.4 MG CAP PO (20:12)
[2018-03-11] MEDS: FINASTERIDE 5 MG TAB PO (20:12)
[2018-03-11] MEDS: SIMVASTATIN 40 MG TAB PO (20:12)
[2018-03-11] MEDS: QUEtiapine FUMARATE 50 MG TAB PO (20:12)
[2018-03-12 07:01] LABS: HEMATOCRIT 31.5 % (42.0-52.0); HEMOGLOBIN 10.6 g/dl (13.5-17.5); MEAN CORPUSCULAR HEMOGLOBIN 31.4 pg (27.0-33.0); MEAN CORPUSCULAR HGB CONC 33.7 g/dl (32.0-36.5); MEAN CORPUSCULAR VOLUME 93.2 fl (80.0-96.0); PLATELET COUNT, AUTOMATED 388 10^3/uL (150-450); RED BLOOD COUNT 3.38 10^6/uL (4.30-6.10); RED CELL DISTRIBUTION WIDTH 12.8 % (11.5-14.5); WHITE BLOOD COUNT 10.4 10^3/uL (4.0-10.0)
[2018-03-12 07:10] LABS: INR 3.48; PROTHROMBIN TIME 35.8 SECONDS (12.1-14.4)
[2018-03-12 07:32] LABS: ANION GAP 9 MEQ/L (8-16); BLOOD UREA NITROGEN 17 MG/DL (7-18); CARBON DIOXIDE LEVEL 24 MEQ/L (21-32); CHLORIDE LEVEL 106 MEQ/L (98-107); GLOMERULAR FILTRATION RATE > 60.0 (>56); GLUCOSE, FASTING 110 MG/DL (70-100); POTASSIUM SERUM 3.6 MEQ/L (3.5-5.1); SODIUM LEVEL 139 MEQ/L (136-145)
[2018-03-12] MEDS: SUCRALFATE SUSP 1GM/10ML UD PO ×4 (08:20→21:40)
[2018-03-12] MEDS: PANTOPRAZOLE 40MG TAB (PROTONIX) PO ×2 (08:20→21:41)
[2018-03-12] MEDS: ASPIRIN 81 MG ENTERIC TAB PO (08:20)
[2018-03-12] MEDS: MIRALAX *UNIT DOSE* 17GM PACKET PO (08:20)
[2018-03-12] MEDS: HumaLOG INSULIN (NovoLOG) PER UNIT SC ×4 (08:20→20:40)
[2018-03-12 11:56] LABS: BEDSIDE GLUCOSE 142 MG/DL (70-105)
[2018-03-12] MEDS: WARFARIN SOD 3 MG TAB PO (16:15)
[2018-03-12 17:04] LABS: BEDSIDE GLUCOSE 134 MG/DL (70-105)
[2018-03-12 19:55] LABS: BEDSIDE GLUCOSE 144 MG/DL (70-105)
[2018-03-12] MEDS: FINASTERIDE 5 MG TAB PO (21:41)
[2018-03-12] MEDS: QUEtiapine FUMARATE 50 MG TAB PO (21:41)
[2018-03-12] MEDS: SIMVASTATIN 40 MG TAB PO (21:41)
[2018-03-12] MEDS: TAMSULOSIN 0.4 MG CAP PO (21:41)
[2018-03-13 06:41] LABS: HEMATOCRIT 34.2 % (42.0-52.0); HEMOGLOBIN 11.4 g/dl (13.5-17.5); MEAN CORPUSCULAR HEMOGLOBIN 31.3 pg (27.0-33.0); MEAN CORPUSCULAR HGB CONC 33.3 g/dl (32.0-36.5); PLATELET COUNT, AUTOMATED 401 10^3/uL (150-450); RED BLOOD COUNT 3.64 10^6/uL (4.30-6.10)
[2018-03-13 06:55] LABS: INR 2.83; PROTHROMBIN TIME 30.4 SECONDS (12.1-14.4)
[2018-03-13 07:05] LABS: ANION GAP 8 MEQ/L (8-16); BLOOD UREA NITROGEN 16 MG/DL (7-18); CALCIUM LEVEL 8.4 MG/DL (8.5-10.1); CARBON DIOXIDE LEVEL 26 MEQ/L (21-32); CHLORIDE LEVEL 106 MEQ/L (98-107); CREATININE FOR GFR 0.85 MG/DL (0.70-1.30); GLOMERULAR FILTRATION RATE > 60.0 (>56); GLUCOSE, FASTING 139 MG/DL (70-100); POTASSIUM SERUM 3.4 MEQ/L (3.5-5.1); SODIUM LEVEL 140 MEQ/L (136-145)
[2018-03-13] MEDS: SUCRALFATE SUSP 1GM/10ML UD PO (08:13)
[2018-03-13] MEDS: HumaLOG INSULIN (NovoLOG) PER UNIT SC (08:14)
[2018-03-13] MEDS: ASPIRIN 81 MG ENTERIC TAB PO (08:15)
[2018-03-13] MEDS: MIRALAX *UNIT DOSE* 17GM PACKET PO (08:15)
[2018-03-13] MEDS: PANTOPRAZOLE 40MG TAB (PROTONIX) PO (08:15)
[2018-03-13] MEDS: POTASSIUM CHLORIDE 10 MEQ SR TABLET PO (08:15)
[2018-03-13] MEDS: INFLUENZA QUADRIVALENT PF VACCINE 0.5ML SYRINGE (90686) IM (09:11)
== END 2018-03-13 10:20 | DRG 311 ==
LOC: M PCU 02-23 12:15 → M MSPAV 02-28 20:22 → M ED INP 02-16 02:16 → M MSPAV 02-16 18:12 → M ED 21:37
DX: I24.0 Acute coronary thrombosis not resulting in myocardial infarction (principal); I63.49 Cerebral infarction due to embolism of other cerebral artery; E87.0 Hyperosmolality and hypernatremia; K56.600 Partial intestinal obstruction, unspecified as to cause; N17.9 Acute kidney failure, unspecified; R42 Dizziness and giddiness; F32.9 Major depressive disorder, single episode, unspecified; F43.10 Post-traumatic stress disorder, unspecified; F17.210 Nicotine dependence, cigarettes, uncomplicated; F12.10 Cannabis abuse, uncomplicated; F60.2 Antisocial personality disorder; F14.10 Cocaine abuse, uncomplicated; E87.6 Hypokalemia; E83.42 Hypomagnesemia; K25.9 Gastric ulcer, unspecified as acute or chronic, without hemorrhage or perforation; Z91.040 Latex allergy status; Z91.5 Personal history of self-harm; R33.9 Retention of urine, unspecified; R31.9 Hematuria, unspecified; N30.90 Cystitis, unspecified without hematuria; K59.00 Constipation, unspecified; N40.1 Benign prostatic hyperplasia with lower urinary tract symptoms; N32.0 Bladder-neck obstruction